=== PATIENT | female | born 1960 | race Caucasian/White ===

== ENCOUNTER 2016-09-03 16:35 | Emergency (ER) | payer BC ==
[2016-09-03 16:49] VITALS: BP 123/81
--- NOTE | 2016-09-03 17:30 | UC ---
Throat Pain/Nasal Kenneth HPI - HPI Summary HPI Summary: Pt presents with 2 week c/o nasal congestion, cough and sinus pressure. Pt has been taking OTC "cold medicine" with no improvement. - History of Current Complaint Chief Complaint: UCRespiratory Stated Complaint: SINUS,COUGH,SORE THROAT Time Seen by Provider: 09/03/16 17:20 Hx Obtained From: Patient Hx Last Menstrual Period: n/a ?: No Onset/Duration: Gradual Onset, Lasting Weeks - 2 Severity: Mild Cough: Nonproductive Associated Signs & Symptoms: Positive: Sinus Discomfort, Other - nasal congestion, non prodictive cough Related History: Seasonal Allergies - unsure - Epiglottits Risk Factors Epiglottis Risk Factors: Negative - Allergies/Home Medications Allergies/Adverse Reactions: Allergies Allergy/AdvReac Type Severity Reaction Status Date / Time Thimerosal Allergy Eyes Verified 09/03/16 16:54 Itchy/Swollen/Red/Watery Home Medications: Home Medications amLODIPine TAB* [Norvasc 5 mg TAB*] 5 mg PO DAILY 09/03/16 [History Confirmed ] PMH/Surg Hx/FS Hx/Imm Hx Previously Healthy: Yes Cardiovascular History: Hypertension - well managed - Surgical History Surgical History: Yes Surgery Procedure, Year, and Place: hysterectomy 2009, bladder repair 2010, d and c plus ablation 2007, tonsils 1967 - Family History Known Family History: Positive: Cardiac Disease, Hypertension - Social History Lives: With Family Alcohol Use: Occasionally Substance Use Type: None Smoking Status (MU): Never Smoked Tobacco Have You Smoked in the Last Year: No Review of Systems Constitutional: Fatigue - geenralized malaise Skin: Negative Eyes: Negative ENT: Sinus Congestion, Sinus Pain/Tenderness, Other - nasal congestion Respiratory: Cough Cardiovascular: Negative Gastrointestinal: Negative Genitourinary: Negative Motor: Negative Neurovascular: Negative Musculoskeletal: Myalgia Neurological: Negative Psychological: Negative All Other Systems Reviewed And Are Negative: Yes Physical Exam Triage Information Reviewed: Yes Appearance: Ill-Appearing Vital Signs: Initial Vital Signs Temp 98.6 F 09/03/16 16:44 Pulse 79 09/03/16 16:44 Resp 18 09/03/16 16:44 BP 123/81 09/03/16 16:44 Pulse Ox 98 09/03/16 16:44 Vital Signs Reviewed: Yes Eye Exam: Normal ENT Exam: Other ENT: Positive: Nasal congestion, TM bulging - bilateral Dental Exam: Normal Neck exam: Normal Neck: Positive: Supple Respiratory Exam: Normal Cardiovascular Exam: Normal Abdominal Exam: Normal Musculoskeletal Exam: Normal Neurological Exam: Normal Psychological Exam: Normal Skin Exam: Normal Throat Pain/Nasal Course/Dx - Differential Dx/Diagnosis Differential Diagnosis/HQI/PQRI: Sinusitis, URI Provider Diagnoses: bronchitis Discharge - Discharge Plan Condition: Stable Disposition: HOME Prescriptions: Azithromycin TAB* [Zithromax TAB (Z-BIRD) 250 mg #6 tabs] 2 tab PO .TODAY, THEN 1 DAILY #1 bird Benzonatate CAP* [Tessalon 100 MG CAP*] 100 mg PO Q8H PRN #30 cap PRN Reason: Cough Cetirizine-Pseudoephedrine [Zyrtec-D Allergy/Congesti] 1 tab PO DAILY #7 tab Patient Education Materials: Acute Bronchitis (ED), Allergic Rhinitis (ED) Referrals: Ingrid Espinoza MD [Primary Care Provider] - If Needed Additional Instructions: Please follow up with your PCP or return to clinic as needed.
== END 2016-09-03 17:46 | disposition home or self-care (01) ==
LOC: UCCORT 16:35
DX: J40 Bronchitis, not specified as acute or chronic (principal); I10 Essential (primary) hypertension
CPT/HCPCS: 99212; G0463

== ENCOUNTER 2018-05-03 18:03 | Emergency (ER) | payer BC ==
[2018-05-03 18:18] VITALS: BP 133/86
--- NOTE | 2018-05-03 18:38 | UC ---
Throat Pain/Nasal Kenneth HPI - HPI Summary HPI Summary: 57 yo female with 3 day hx of cough, nasal congestion, sore throat and left otalgia no f.c no n.v.d. no cp or sob sore throat and cough the worse symptoms - History of Current Complaint Chief Complaint: UCGeneralIllness Stated Complaint: ST,EARACHE Time Seen by Provider: 05/03/18 18:17 Hx Obtained From: Patient Hx Last Menstrual Period: n/a ?: Yes Onset/Duration: Gradual Onset, Lasting Days Severity: Moderate Pain Intensity: 7 Pain Scale Used: 0-10 Numeric Cough: Nonproductive Associated Signs & Symptoms: Positive: Sinus Discomfort, Nasal Discharge - Epiglottits Risk Factors Epiglottis Risk Factors: Negative - Allergies/Home Medications Allergies/Adverse Reactions: Allergies Allergy/AdvReac Type Severity Reaction Status Date / Time thimerosal Allergy Eyes Verified 05/03/18 18:14 Itchy/Swollen/Red/Watery Home Medications: Home Medications Fexofenadine/Pseudoephedrine [Tierney-D 24 Hour Tablet] 1 each PO DAILY [History Confirmed 05/03/18] Ibuprofen [Advil] 400 mg PO DAILY 05/03/18 [History Confirmed 05/03/18] Sertraline HCl [Zoloft] 50 mg PO DAILY 05/03/18 [History Confirmed 05/03/18] guaiFENesin [Mucinex] 1 each PO DAILY 05/03/18 [History Confirmed 05/03/18] PMH/Surg Hx/FS Hx/Imm Hx Previously Healthy: Yes - Surgical History Surgical History: Yes Surgery Procedure, Year, and Place: hysterectomy 2009, bladder repair 2010, d and c plus ablation 2007, tonsils 1967. EYES - LENS IMPLANT - - Family History Known Family History: Positive: Cardiac Disease, Hypertension - Social History Alcohol Use: Occasionally Substance Use Type: None Smoking Status (MU): Never Smoked Tobacco Have You Smoked in the Last Year: No Review of Systems All Other Systems Reviewed And Are Negative: Yes Constitutional: Positive: Negative Skin: Positive: Negative Eyes: Positive: Negative ENT: Positive: Sore Throat, Ear Ache Respiratory: Positive: Cough Cardiovascular: Positive: Negative Gastrointestinal: Positive: Negative Genitourinary: Positive: Negative Motor: Positive: Negative Neurovascular: Positive: Negative Musculoskeletal: Positive: Negative Neurological: Positive: Negative Psychological: Positive: Negative Physical Exam Triage Information Reviewed: Yes Appearance: Well-Appearing, No Pain Distress, Well-Nourished Vital Signs: Initial Vital Signs Temp 98.6 F 05/03/18 18:13 Pulse 78 05/03/18 18:13 Resp 16 05/03/18 18:13 BP 133/86 05/03/18 18:13 Pulse Ox 98 05/03/18 18:13 Vital Signs Reviewed: Yes Eyes: Positive: Conjunctiva Clear ENT: Positive: Hearing grossly normal, Nasal congestion, TM bulging - L, Hoarse voice, Uvula midline. Negative: Nasal drainage, Tonsillar swelling, Tonsillar exudate, Trismus, Muffled voice, Dental tenderness, Sinus tenderness Dental Exam: Normal Neck: Positive: Supple, Nontender, No Lymphadenopathy Respiratory: Positive: Lungs clear, Normal breath sounds, No respiratory distress, No accessory muscle use Cardiovascular: Positive: RRR, No Murmur. Negative: Tachycardia, Bradycardia Musculoskeletal: Positive: ROM Intact, No Edema Neurological Exam: Normal Neurological: Positive: Alert Psychological Exam: Normal Skin Exam: Normal Throat Pain/Nasal Course/Dx - Differential Dx/Diagnosis Provider Diagnosis: Viral URI with cough, Left serous otitis media, Laryngitis Discharge - Sign-Out/Discharge Documenting (check all that apply): Patient Departure All imaging exams completed and their final reports reviewed: No Studies - Discharge Plan Condition: Stable Disposition: HOME Prescriptions: Benzonatate CAP* [Tessalon CAP*] 100 - 200 mg PO TID PRN #28 cap PRN Reason: Cough predniSONE [Deltasone 20 MG TAB] 40 mg PO DAILY #10 tab Patient Education Materials: Upper Respiratory Infection (ED), Serous Otitis Media (ED) Referrals: Ingrid Espinoza MD [Primary Care Provider] - 7 Days (if not better....sooner for worsening symtpoms ) Additional Instructions: I suggest you start the prednisone in AM - Billing Disposition and Condition Condition: STABLE Disposition: Home
== END 2018-05-03 18:48 | disposition home or self-care (01) ==
LOC: UCCORT 18:03
DX: J06.9 Acute upper respiratory infection, unspecified (principal); R05 Cough; J04.0 Acute laryngitis; H65.92 Unspecified nonsuppurative otitis media, left ear; Z88.8 Allergy status to other drugs, medicaments and biological substances
CPT/HCPCS: 87651; 99212; G0463

== ENCOUNTER 2018-08-27 18:28 | Emergency (ER) | payer BC ==
--- OUTSIDE RECORDS SUMMARY | 2018-08-27 19:19 | XMS REPORT | Continuity of Care Document ---
:1960 External Reference #:[id number] Author Name Ingrid Espinoza MD Address [address] [place] [address] Care Team Providers Name Role Phone Ingrid Espinoza MD Care Team Information Tso Unavailable Ingrid Espinoza MD Primary Care Physician Unavailable Payers Date Identification Numbers Payment Provider Subscriber Policy Number: [id number] Timothy Navas PayID: [id number] [address] [address] [place] [address] Problems Active Problems Provider Date Benign essential hypertension Ingrid Espinoza MD Onset: 10/29/2015 Arthralgia of the pelvic region and thigh Ingrid Espinoza MD Onset: 01/28/2016 Feeling irritable Ingrid Espinoza MD Onset: 04/28/2016 Insomnia Ingrid Espinoza MD Onset: 04/28/2016 Moderate recurrent major depression Ingrid Espinoza MD Onset: 02/23/2017 Anxiety state Ingrid Espinoza MD Onset: 02/23/2017 Family History Date Family Member(s) Observation Comments Father Chronic Obstructive Pulmonary Disease (COPD) Father Glaucoma Mother Cancer Mother Heart Disease Mother Thyroid Disease Social History Type Date Description Comments Sex Unknown Lives With Occupation [employer] Work Status Currently Working ADL's/IADL's Independent with all ADL's ETOH Use Rarely consumes alcohol Recreational Drug Use Former Drug User [facility] Tobacco Use Start: Unknown Patient denies history of smoking Smoking Status Reviewed: 08/03/18 Patient denies history of smoking Allergies, Adverse Reactions, Alerts Active Allergies Reaction Severity Comments Date Thimerosal 10/29/2015 Medications Active Medications SIG Qnty Indications Ordering Date Provider Wrist Brace Ultra-Lite wear on right 1Pair G56.03 Olga, Ingrid, 2018 Carpal Tunnel/One Size wrist and left MD wrist Misc Ergocalciferol 1 cap by mouth 4caps Olga, Ingrid, 05/24/2018 [id number] every week for MD Capsules 12 weeks Sertraline HCL 1 by mouth 30tabs Olga, Ingrid, 01/13/2018 100mg everyday MD Tablets Hydroxyzine HCL take one tablet 30tabs Gagen, 02/23/2017 10mg by mouth at [place], [place], Tablets night as 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[employer], CNM for itching and insomnia Allergy Injections Olga, Ingrid, 04/28/2016 MD History Medications Sertraline HCL 1 tab by mouth 60tabs Olga, Ingrid, 11/24/2017 - 25mg Tablets every night x 2 MD 01/13/2018 weeks then take 2 tabs at night Zolpidem Tartrate take one every 30tabs F51.01 Gagen, 10/21/2017 - 5mg night for [place], 03/25/2018 Tablets insomnia MS, [employer], CNM Reference #: [id number] Benzonatate take one capsule 30caps R05 Gagen, 10/21/2017 - 200mg Capsules every 8 hours as [place], 03/25/2018 needed MS, [employer], CNM Duloxetine HCL 1 tabs by mouth 60caps Olga, Ingrid, 02/23/2017 - 30mg Caps DR every evening MD 01/13/2018 Part Ciprofloxacin HCL 1 tab by mouth 10tabs Olga, Ingrid, 07/09/2016 - 500mg twice daily for 5 MD Unknown Tablets days Ambien take one tab by 30tabs Gagen, 04/28/2016 - 5mg Tablets mouth at night as [place], 11/02/2017 needed as needed [place], [employer], CNM insomnia Ref # [id number] Diclofenac Sodium 2 g topical on 100gm Olga Ingrid, 04/28/2016 - 1% Gel back of neck Unknown twice a day as needed Tizanidine HCL 1 tab by mouth 60tabs Olga, Ingrid, 04/28/2016 - 4mg Tablets two times a day Unknown as needed for muscle spasm/pain Paroxetine HCL 1 by mouth every 30tabs Olga, Ingrid, 02/20/2016 - 20mg Tablets day 02/23/2017 Xanax 1 tab by mouth 30tabs Ingrid Espinoza, 02/20/2016 - 0.25mg Tablets twice daily as Unknown needed for severe anxiety Cyclobenzaprine HCL 1 by mouth once a 30tabs Ingrid Espinoza, 02/20/2016 - 10mg day as needed MD Unknown Tablets muscle spasms of back No Active Medications Unknown 01/28/2016 - 01/28/2016 Nasadrops Saline On The airrigate nose Ingrid Espinoza, 01/28/2016 - Go every 6 hours as 01/28/2016 0.9% Solution needed Amlodipine Besylate 1 by mouth every 90tabs I10 Ingrid Espinoza, 01/28/2016 - 5mg day 10/21/2017 Tablets Ambien take one tab by 30tabs Ingrid Espinoza, 01/28/2016 - 5mg Tablets mouth at night as Unknown needed as needed insomnia No Active Medications Ingrid Espinoza, 10/29/2015 - 10/29/2015 Amlodipine Besylate 1 by mouth every 30tabs I10 Ingrid Espinoza, 10/29/2015 - 5mg day 01/28/2016 Tablets Levocetirizine 1 by mouth every Unknown - Dihydrochloride day 10/21/2017 5mg Tablets Nasonex 2 sprays each Unknown - 50mcg/Act nostril every day Unknown Suspension Vital Signs Date Vital Result Comment 08/03/2018 4:02pm BP Systolic Sitting Left Arm 116 mmHg BP Diastolic Sitting Left Arm 76 mmHg Body Temperature 99.1 F Heart Rate 88 /min Respiratory Rate 20 /min Height 65.5 inches 5'5.50" Weight 194.00 lb BMI (Body Mass Index) 31.8 kg/m2 BSA (Body Surface Area) 1.96 m2 [place] body weight in kilograms 58 kg O2 % BldC Oximetry 97 % Ra 03/25/2018 3:57pm BP Systolic Sitting Right Arm 135 mmHg BP Diastolic Sitting Right Arm 87 mmHg Body Temperature 99.2 F Heart Rate 78 /min Height 65.5 inches 5'5.50" Weight 195.00 lb BMI (Body Mass Index) 32.0 kg/m2 BSA (Body Surface Area) 1.97 m2 [place] body weight in kilograms 58 kg O2 % BldC Oximetry 96 % 01/13/2018 4:05pm BP Systolic Sitting Left Arm 124 mmHg BP Diastolic Sitting Left Arm 80 mmHg Body Temperature 98.7 F Heart Rate 78 /min Respiratory Rate 16 /min Height 65.5 inches 5'5.50" Weight 188.00 lb BMI (Body Mass Index) 30.8 kg/m2 BSA (Body Surface Area) 1.94 m2 [place] body weight in kilograms 58 kg O2 % BldC Oximetry 97 % Ra 11/24/2017 2:59pm BP Systolic Sitting Right Arm 135 mmHg BP Diastolic Sitting Right Arm 92 mmHg Body Temperature 98.2 F Heart Rate 90 /min Respiratory Rate 16 /min Height 65.5 inches 5'5.50" Weight 187.00 lb BMI (Body Mass Index) 30.6 kg/m2 BSA (Body Surface Area) 1.93 m2 [place] body weight in kilograms 58 kg O2 % BldC Oximetry 97 % 11/02/2017 3:31pm BP Systolic 133 mmHg BP Diastolic 92 mmHg Body Temperature 97.7 F Heart Rate 76 /min Respiratory Rate 18 /min Height 65.5 inches 5'5.50" Weight 185.12 lb BMI (Body Mass Index) 30.3 kg/m2 BSA (Body Surface Area) 1.93 m2 [place] body weight in kilograms 58 kg O2 % BldC Oximetry 97 % 10/21/2017 11:05am BP Systolic Sitting Right Arm 120 mmHg BP Diastolic Sitting Right Arm 72 mmHg Body Temperature 98.9 F Heart Rate 74 /min Respiratory Rate 18 /min Height 65.5 inches 5'5.50" Weight 185.00 lb BMI (Body Mass Index) 30.3 kg/m2 BSA (Body Surface Area) 1.92 m2 [place] body weight in kilograms 58 kg O2 % BldC Oximetry 97 % ra 02/23/2017 1:39pm BP Systolic 139 mmHg BP Diastolic 95 mmHg Heart Rate 82 /min Respiratory Rate 14 /min Height 65.5 inches 5'5.50" Weight 195.50 lb BMI (Body Mass Index) 32.0 kg/m2 BSA (Body Surface Area) 1.97 m2 [place] body weight in kilograms 58 kg O2 % BldC Oximetry 97 % 09/29/2016 3:44pm BP Systolic Sitting Right Arm 117 mmHg BP Diastolic Sitting Right Arm 79 mmHg Body Temperature 99.1 F Heart Rate 70 /min Height 65.5 inches 5'5.50" Weight 185.00 lb BMI (Body Mass Index) 30.3 kg/m2 BSA (Body Surface Area) 1.92 m2 [place] body weight in kilograms 58 kg O2 % BldC Oximetry 95 % ra 07/09/2016 2:00pm BP Systolic Sitting Right Arm 120 mmHg BP Diastolic Sitting Right Arm 80 mmHg Body Temperature 98.1 F Height 65.5 inches 5'5.50" Weight 180.00 lb BMI (Body Mass Index) 29.5 kg/m2 BSA (Body Surface Area) 1.90 m2 [place] body weight in kilograms 58 kg 07/01/2016 11:42am BP Systolic 116 mmHg BP Diastolic 78 mmHg Heart Rate 65 /min Height 65.5 inches 5'5.50" Weight 181.00 lb BMI (Body Mass Index) 29.7 kg/m2 BSA (Body Surface Area) 1.91 m2 [place] body weight in kilograms 58 kg 05/21/2016 10:43am BP Systolic 138 mmHg BP Diastolic 94 mmHg Heart Rate 74 /min Height 65.5 inches 5'5.50" Weight 180.00 lb BMI (Body Mass Index) 29.5 kg/m2 BSA (Body Surface Area) 1.90 m2 04/28/2016 3:40pm BP Systolic 120 mmHg BP Diastolic 86 mmHg Heart Rate 82 /min Height 65.5 inches 5'5.50" Weight 182.00 lb BMI (Body Mass Index) 29.8 kg/m2 BSA (Body Surface Area) 1.91 m2 02/20/2016 11:10am BP Systolic Sitting Right Arm 140 mmHg BP Diastolic Sitting Right Arm 86 mmHg Height 65.5 inches 5'5.50" Weight 196.00 lb BMI (Body Mass Index) 32.1 kg/m2 BSA (Body Surface Area) 1.97 m2 01/28/2016 3:36pm BP Systolic Sitting Right Arm 132 mmHg BP Diastolic Sitting Right Arm 88 mmHg Height 65.5 inches 5'5.50" Weight 197.31 lb BMI (Body Mass Index) 32.3 kg/m2 BSA (Body Surface Area) 1.98 m2 10/29/2015 10:58am BP Systolic 150 mmHg BP Diastolic 106 mmHg Heart Rate 72 /min Height 65.5 inches 5'5.50" Weight 194.00 lb BMI (Body Mass Index) 31.8 kg/m2 BSA (Body Surface Area) 1.96 m2 [place] body weight in kilograms 58 kg Results Test Date Facility Test Result H/L Range Note Laboratory test [facility] Laboratory Rapid Strep Negative Negative 1 finding 9 [phone] Molecular Comprehensive [facility] Glucose 108 mg/dL High 74-106 2 Metabolic Panel [address] [place], [place] [id number] [phone] BUN 12 mg/dL N 7-18 Creatinine 0.6 mg/dL N 0.6-1.3 Glom Filtration Rate, Estimate >60 mL/min >60 If >60 mL/min >60 3 BUN/Creat 20.0 ratio Sodium 139 mmol/L N 136-145 Potassium 4.5 mmol/L N 3.5-5.1 Chloride 106 mmol/L N 98-107 Carbon Dioxide 28 mmol/L N 21-32 Anion Gap 5 mEq/L Low 8-16 Calcium 8.7 mg/dL N 8.5-10.1 Total Protein 7.5 g/dL N 6.4-8.2 Albumin 4.1 g/dL N 3.4-5.0 Globulin 3.4 g/dL N 1.9-4.3 Alb/Glob 1.2 ratio Bilirubin,Total 0.4 mg/dL N 0.2-1.0 Sgot/Ast 17 U/L N 15-37 SGPT/Alt 23 U/L N 12-78 Alkaline Phosphatase 65 U/L N 45-117 Reflex add FT3? Y Reflex add FT4? Y CBC W/Automated Diff 04/26/2018 [facility] White Blood 4.5 K/uL N 3.1-10.[address] Count [place], [place] [id number] [phone] Red Blood Count 4.65 M/uL N 3.90-5.40 Hemoglobin 14.2 gm/dL N 11.6-15.8 Hematocrit 42.9 % N 36.0-46.1 Mean Cell Volume 92.3 fl N 80.9-99.0 Mean Corpuscular HGB 30.5 pg N 25.9-32.7 Mean Corpuscular HGB Conc 33.1 g/dL N 30.8-34.3 Platelet Count 241 K/uL N 155-360 Red Cell Distri Width SD 45.5 fl N 36-47 Red Cell Distri Width %CV 13.7 % N 11.7-14.4 Mean Platelet Volume 11.0 fL N 8.9-12.4 Neut% 53.1 % N 40.4-72.8 Lymph % 34.9 % N 20.0-42.0 [place] % 8.2 % N 4.3-13.2 Eo% 2.9 % N 0.0-6.6 Bas% 0.9 % N 0.0-1.1 Neut# 2.41 K/uL N 1.8-7.0 Lymph # 1.58 K/uL N 1.0-4.0 [place] # 0.37 K/uL N 0.3-0.9 Eos # 0.13 K/uL N 0.0-0.5 Baso # 0.04 K/uL N 0.0-0.1 TSH Reflex FT4 04/26/2018 [facility] Thyroid Stim 1.50 uIU/mL N 0.30-4.20 And/Or FT3 [address] [place] [address] [phone] Reflex add FT3? Y Reflex add FT4? Y LDL Cholesterol 04/26/2018 [facility] Cholesterol 242 mg/dL High <200 4 [address] [place] [address] [phone] Triglycerides 218 mg/dL High <150 5 HDL Cholesterol 50 mg/dL >40 6 LDL-Cholesterol 148 mg/dL < 100 7 Reflex add FT3? Y Reflex add FT4? Y Laboratory 04/26/2018 [facility] Vitamin 16.2 ng/mL Low 30.0-100.0 8 test finding [address] D,25-[place] [address] [phone] Urine Culture 10/21/2017 [facility] Urine Culture URETHRAL [address] [place] [address] [phone] Quantity 10,000 - 50,000 <SEE NOTE> 10 Laboratory test finding 02/23/2017 [facility] Ferritin 55 ng/mL N 8-[address] [place] [address] [phone] Free T4 0.87 ng/dL N 0.76-1.46 Iron-Tibc-%Sat 02/23/2017 [facility] Serum Iron 136 g/dL N 50-[address] [place] [address] [phone] Total Iron Binding Capacity 358 g/dL N 250-450 Transferrin %Saturation 38 % N 12-57 Laboratory test 02/23/2017 [facility] Thyroid Stim 1.84 uIU/mL N 0.30-4.[address] [place] [address] [phone] Magnesium 2.4 mg/dL N 1.8-2.4 Vitamin B12 504 pg/mL N 193-986 CBS W/Automated Diff 02/23/2017 [facility] White Blood 7.9 K/uL N 3.1-10.[address] [place] [address] [phone] Red Blood Count 4.89 M/uL N 3.90-5.40 Hemoglobin 14.9 gm/dL N 11.6-15.8 Hematocrit 44.0 % N 36.0-46.1 Mean Cell Volume 90.0 fl N 80.9-99.0 Mean Corpuscular HGB 30.5 pg N 25.9-32.7 Mean Corpuscular HGB Conc 33.9 g/dL N 30.8-34.3 Platelet Count 296 K/uL N 155-360 Red Cell Distri Width SD 43.5 fl N 3-47 Red Cell Distri Width %CV 13.5 % N 11.7-14.4 Mean Platelet Volume 11.5 fL N 8.9-12.4 Neut% 54.5 % N 40.4-72.8 Lymph % 34.7 % N 20.0-42.0 [place] % 8.3 % N 4.3-13.2 Eo% 1.9 % N 0.0-6.6 Bas% 0.6 % N 0.0-1.1 Neut# 4.32 K/uL N 1.8-7.0 Lymph # 2.75 K/uL N 1.0-4.0 [place] # 0.66 K/uL N 0.3-0.9 Eos # 0.15 K/uL N 0.0-0.5 Baso # 0.05 K/uL N 0.0-0.1 Comprehensive Metabolic 02/23/2017 [facility] Glucose 87 mg/dL N 74-[address] [place] [address] [phone] BUN 14 mg/dL N 7-18 Creatinine 0.5 mg/dL Low 0.6-1.3 Glom Filtration Rate, Estimate >60 mL/min >60 If >60 mL/min >60 12 BUN/Creat 28.0 ratio Sodium 140 mmol/L N 136-145 Potassium 4.2 mmol/L N 3.5-5.1 Chloride 106 mmol/L N 98-107 Carbon Dioxide 27 mmol/L N 21-32 Anion Gap 7 mEq/L Low 8-16 Calcium 9.5 mg/dL N 8.5-10.1 Total Protein 7.9 g/dL N 6.4-8.2 Albumin 4.2 g/dL N 3.4-5.0 Globulin 3.7 g/dL N 1.9-4.3 Alb/Glob 1.1 ratio Bilirubin,Total 0.4 mg/dL N 0.2-1.0 Sgot/Ast 21 U/L N 15-37 SGPT/Alt 34 U/L N 12-78 Alkaline Phosphatase 84 U/L N 45-117 Laboratory test 10/02/2016 [facility] Rheumatoid < 10.0 IU/mL N 0.0-15.0 [address] [place] [address] [phone] CCP Igg/Iga 10/02/2016 [facility] CCP Igg/Iga 4 units 0-19 [address] [place] [address] [phone] Laboratory test 10/02/2016 [facility] Anti-Nuclear Negative Negative [address] Antibodies AU/[place] [address] Direct [phone] Sedimentation Rate 13 mm/hr N 0-30 16 Culture If 07/09/2016 [facility] Culture If CULTURE TO 17, [address] Indicated [place]LL[place] <[place] [address] Comment NOTE> [phone] Source: URINE, CLEAN CAT <SEE NOTE> 19 Ua Routine 07/09/2016 [facility] Urine Color DK YELLOW Yellow [address] [place] [address] [phone] Urine Clarity CLEAR Clear Urine Glucose - Dipstick NEGATIVE mg/dL Negative Urine Bilirubin - Dipstick NEGATIVE Negative Urine Ketone NEGATIVE mg/dL Negative Urine Specific [place] <=1.005 Low 1.010-1.030 Urine Blood LARGE Abnormal Negative Urine PH 5.0 Low 6.5-7.5 Urine Protein - Dipstick NEGATIVE mg/dL Negative Urine Urobilinogen - Dipstick 1.0 E.U./dL N 0.2-1.0 Urine Nitrite - Dipstick POSITIVE Abnormal Negative Urine Leuk Esterase NEGATIVE Negative Urine RBC NONE SEEN rbc/hpf 0-2 Urine WBC 2-5 wbc/hpf 0-7 Urine Epithelial Cells VERY FEW /lpf None Seen Urine Bacteria MODERATE Abnormal None Seen Source: URINE, CLEAN CAT <SEE NOTE> 20 Urine Culture 07/09/2016 [facility] Urine Culture [address]RETHRAL [address] [place] [address] [phone] Quantity 10,000 - 50,000 <SEE NOTE> N 21 Calculi,Urinary,With Photo 07/01/2016 [facility] Color Brown . 22 [address] [place] [address] [phone] Size 1x1x1 mm . Weight 1.9 mg . Composition (SEE NOTE) 23 Ca Oxalate,Monohydrate 95 % . Calcium Phosphate 05 % . Nidus No Nidus visuali <SEE NOTE> . 24 Comment Note: . 25 . (SEE NOTE) 26 . (SEE NOTE) 27 . (SEE NOTE) 28 Disclaimer (SEE NOTE) 29 pH Ur Strip.auto 06/03/2016 N2N/CCD Import pH Ur Strip.auto 8.5 High 6.5- 7.5 Urobilinogen Ur 06/03/2016 N2N/CCD Import Urobilinogen Ur 0.2 0.2-1.0 Strip-aCnc Strip-aCn Urine hemoglobin 06/03/2016 N2N/CCD Import Urine hemoglobin Large High Negative detection by detection by automated test automated test strip strip Ua Routine 06/03/2016 [facility] Urine Color YELLOW Yellow [address] [place] [address] [phone] Urine Clarity SL CLOUDY Clear Urine Glucose - Dipstick NEGATIVE mg/dL Negative Urine Bilirubin - Dipstick NEGATIVE Negative Urine Ketone 15 mg/dL High Negative Urine Specific [place] 1.015 N 1.010-1.030 Urine Blood LARGE Abnormal Negative Urine PH 8.5 High 6.5-7.5 Urine Protein - Dipstick NEGATIVE mg/dL Negative Urine Urobilinogen - Dipstick 0.2 E.U./dL N 0.2-1.0 Urine Nitrite - Dipstick NEGATIVE Negative Urine Leuk Esterase NEGATIVE Negative Urine RBC 30-50 rbc/hpf High 0-2 Urine WBC 0-2 wbc/hpf 0-7 Urine Epithelial Cells VERY FEW /lpf None Seen Urine Bacteria VERY FEW None Seen Source: URINE, CLEAN CAT <SEE NOTE> 31 Bacteria 06/03/2016 N2N/CCD Import Bacteria Very Few None Seen [presence] in [presence] in urine sediment by urine sediment light micky by light microscopy Bilirub Ur Ql 06/03/2016 N2N/CCD Import Bilirub Ur Ql Negative Negative Strip.auto Strip.auto Color Ur 06/03/2016 N2N/CCD Import Color Ur Yellow Yellow Epithelial cells 06/03/2016 N2N/CCD Import Epithelial cells Very Few None Seen [presence] in [presence] in urine sediment by urine sediment l by light microscopy Ketones Ur 06/03/2016 N2N/CCD Import Ketones Ur 15 High Negative Strip.auto-mCnc Strip.auto-mCnc Leukocyte 06/03/2016 N2N/CCD Import Leukocyte Negative Negative esterase Ur Ql esterase Ur Ql Strip.auto Strip.auto Nitrite Ur Ql 06/03/2016 N2N/CCD Import Nitrite Ur Ql Negative Negative Strip.auto Strip.auto Prot Ur 06/03/2016 N2N/CCD Import Prot Ur Negative Negative Strip.auto-mCnc Strip.auto-mCnc Specific gravity 06/03/2016 N2N/CCD Import Specific gravity 1.015 1.010- 1.030 of urine by of urine by automated test automated test strip strip Urine appearance 06/03/2016 N2N/CCD Import Urine appearance SL Cloudy Clear determination determination Urine glucose 06/03/2016 N2N/CCD Import Urine glucose Negative Negative measurement by measurement by automated test automated test strip strip (mass/volume) Monocytes # Bld 05/14/2016 N2N/CCD Import Monocytes # Bld 0.36 0.3-0.9 Auto Auto MCV RBC Auto 05/14/2016 N2N/CCD Import MCV RBC Auto 92.4 80.9-99.0 MCHC RBC 05/14/2016 N2N/CCD Import MCHC RBC 33.7 30.8-34.3 Auto-mCnc Auto-mCnc MCH RBC Qn Auto 05/14/2016 N2N/CCD Import MCH RBC Qn Auto 31.2 25.9- 32.7 Lymphocytes/leuk 05/14/2016 N2N/CCD Import Lymphocytes/leuk 25.9 20.0- 42.0 NFr Bld Auto NFr Bld Auto Lymphocytes # Bld 05/14/2016 N2N/CCD Import Lymphocytes # 1.28 1.0-4.0 Auto Bld Auto Lipase SerPl-cCnc 05/14/2016 N2N/CCD Import Lipase 96 73-393 SerPl-cCnc Hgb Bld-mCnc 05/14/2016 N2N/CCD Import Hgb Bld-mCnc 14.0 11.6-15.8 Hct VFr Bld Auto 05/14/2016 N2N/CCD Import Hct VFr Bld Auto 41.5 36.0- 46.1 Glucose 05/14/2016 N2N/CCD Import Glucose 137 High 74-106 [mass/volume] in [mass/volume] in serum or plasma serum or plasma Globulin Ser 05/14/2016 N2N/CCD Import Globulin Ser 3.5 1.9-4.3 Calc-mCnc Calc-mCnc Monocytes/leuk 05/14/2016 N2N/CCD Import Monocytes/leuk 7.3 4.3-13.2 NFr Bld Auto NFr Bld Auto Neutrophils # Bld 05/14/2016 N2N/CCD Import Neutrophils # 3.13 1.8-7.0 Auto Bld Auto Neutrophils/leuk 05/14/2016 N2N/CCD Import Neutrophils/leuk 63.4 40.4- 72.8 NFr Bld Auto NFr Bld Auto PMV Bld Auto 05/14/2016 N2N/CCD Import PMV Bld Auto 11.6 8.9-12.4 Platelet # Bld 05/14/2016 N2N/CCD Import Platelet # Bld 183 150-400 Auto Auto Potassium 05/14/2016 N2N/CCD Import Potassium 3.9 3.5-5.1 SerPl-sCnc SerPl-sCnc Prot SerPl-mCnc 05/14/2016 N2N/CCD Import Prot SerPl-mCnc 7.4 6.4-8.2 RBC # Bld Auto 05/14/2016 N2N/CCD Import RBC # Bld Auto 4.49 3.90-5.40 RDW RBC Auto 05/14/2016 N2N/CCD Import RDW RBC Auto 46.4 3-47 RDW RBC Auto-Rto 05/14/2016 N2N/CCD Import RDW RBC Auto-Rto 14.1 11.7- 14.4 Sodium SerPl-sCnc 05/14/2016 N2N/CCD Import Sodium 143 136-145 SerPl-sCnc WBC # Bld Auto 05/14/2016 N2N/CCD Import WBC # Bld Auto 4.9 3.1-10.7 Comprehensive 05/14/2016 [facility] Glucose 137 mg/dL High 74-106 32 Metabolic Panel [address] [place], [place] [id number] [phone] BUN 15 mg/dL N 7-18 Creatinine 0.6 mg/dL N 0.6-1.3 Glom Filtration Rate, Estimate >60 mL/min >60 If >60 mL/min >60 33 BUN/Creat 25.0 ratio Sodium 143 mmol/L N 136-145 Potassium 3.9 mmol/L N 3.5-5.1 Chloride 109 mmol/L High 98-107 Carbon Dioxide 24 mmol/L N 21-32 Anion Gap 10 mEq/L N 8-16 Calcium 8.3 mg/dL Low 8.5-10.1 Total Protein 7.4 g/dL N 6.4-8.2 Albumin 3.9 g/dL N 3.4-5.0 Globulin 3.5 g/dL N 1.9-4.3 Alb/Glob 1.1 ratio Bilirubin,Total 0.3 mg/dL N 0.2-1.0 Sgot/Ast 39 U/L High 15-37 SGPT/Alt 51 U/L N 12-78 Alkaline Phosphatase 74 U/L N 45-117 CBS W/Automated Diff 05/14/2016 [facility] White Blood 4.9 K/uL N 3.1-10.[address] Count [place], [place] [address] [phone] Red Blood Count 4.49 M/uL N 3.90-5.40 Hemoglobin 14.0 gm/dL N 11.6-15.8 Hematocrit 41.5 % N 36.0-46.1 Mean Cell Volume 92.4 fl N 80.9-99.0 Mean Corpuscular HGB 31.2 pg N 25.9-32.7 Mean Corpuscular HGB Conc 33.7 g/dL N 30.8-34.3 Platelet Count 183 K/uL N 150-400 Red Cell Distri Width SD 46.4 fl N 3-47 Red Cell Distri Width %CV 14.1 % N 11.7-14.4 Mean Platelet Volume 11.6 fL N 8.9-12.4 Neut% 63.4 % N 40.4-72.8 Lymph % 25.9 % N 20.0-42.0 [place] % 7.3 % N 4.3-13.2 Eo% 2.6 % N 0.0-6.6 Bas% 0.8 % N 0.0-1.1 Neut# 3.13 K/uL N 1.8-7.0 Lymph # 1.28 K/uL N 1.0-4.0 [place] # 0.36 K/uL N 0.3-0.9 Eos # 0.13 K/uL N 0.0-0.5 Baso # 0.04 K/uL N 0.0-0.1 pH Ur Strip.auto 05/14/2016 N2N/CCD Import pH Ur Strip.auto 7.0 6.5-7.5 Urobilinogen Ur 05/14/2016 N2N/CCD Import Urobilinogen Ur 0.2 0.2-1.0 Strip-aCnc Strip-aCnc Urine hemoglobin 05/14/2016 N2N/CCD Import Urine hemoglobin Moderate High Negative detection by detection by automated test automated test strip strip Urine glucose 05/14/2016 N2N/CCD Import Urine glucose Negative Negative measurement by measurement by automated test automated test strip strip (mass/volume) Urine appearance 05/14/2016 N2N/CCD Import Urine appearance Clear Clear determination determination Specific gravity 05/14/2016 N2N/CCD Import Specific gravity 1.010 1.010- 1.030 of urine by of urine by automated test automated test strip strip Prot Ur 05/14/2016 N2N/CCD Import Prot Ur Negative Negative Strip.auto-mCnc Strip.auto-mCnc Nitrite Ur Ql 05/14/2016 N2N/CCD Import Nitrite Ur Ql Negative Negative Strip.auto Strip.auto Leukocyte 05/14/2016 N2N/CCD Import Leukocyte Negative Negative esterase Ur Ql esterase Ur Ql Strip.auto Strip.auto Ketones Ur 05/14/2016 N2N/CCD Import Ketones Ur Negative Negative Strip.auto-mCnc Strip.auto-mCnc Epithelial cells 05/14/2016 N2N/CCD Import Epithelial cells Very Few None Seen [presence] in [presence] in urine sediment by urine sediment by l light microscopy Color Ur 05/14/2016 N2N/CCD Import Color Ur Yellow Yellow Bilirub Ur Ql 05/14/2016 N2N/CCD Import Bilirub Ur Ql Negative Negative Strip.auto Strip.auto Amorph Sed UrnS 05/14/2016 N2N/CCD Import Amorph Sed UrnS Very Few Negative Ql Micro Ql Micro Ua Routine 05/14/2016 [facility] Urine Color YELLOW Yellow [address] [place] [id number] [phone] Urine Clarity CLEAR Clear Urine Glucose - Dipstick NEGATIVE mg/dL Negative Urine Bilirubin - Dipstick NEGATIVE Negative Urine Ketone NEGATIVE mg/dL Negative Urine Specific [place] 1.010 N 1.010-1.030 Urine Blood MODERATE Abnormal Negative Urine PH 7.0 N 6.5-7.5 Urine Protein - Dipstick NEGATIVE mg/dL Negative Urine Urobilinogen - Dipstick 0.2 E.U./dL N 0.2-1.0 Urine Nitrite - Dipstick NEGATIVE Negative Urine Leuk Esterase NEGATIVE Negative Urine RBC 5-10 rbc/hpf High 0-2 Urine WBC 0-2 wbc/hpf 0-7 Urine Epithelial Cells VERY FEW /lpf None Seen Urine Amorph Sediment VERY FEW Negative Source: URINE, CLEAN CAT <SEE NOTE> 34 Eosinophil/leuk NFr 05/14/2016 N2N/CCD Import Eosinophil/leuk NFr 2.6 0.0-6.6 Bld Auto Bld Auto Eosinophil # Bld 05/14/2016 N2N/CCD Import Eosinophil # Bld 0.13 0.0- 0.5 Auto Auto Creat SerPl-mCnc 05/14/2016 N2N/CCD Import Creat SerPl-mCnc 0.6 0.6-1.3 Chloride SerPl-sCnc 05/14/2016 N2N/CCD Import Chloride SerPl-sCnc 109 High 98-107 Calcium SerPl-mCnc 05/14/2016 N2N/CCD Import Calcium SerPl-mCnc 8.3 Low 8.5-10.1 Co2 SerPl-sCnc 05/14/2016 N2N/CCD Import Co2 SerPl-sCnc 24 21-32 Bilirub SerPl-mCnc 05/14/2016 N2N/CCD Import Bilirub SerPl-mCnc 0.3 0.2- 1.0 Basophils/leuk NFr 05/14/2016 N2N/CCD Import Basophils/leuk NFr 0.8 0.0- 1.1 Bld Auto Bld Auto Basophils # Bld Auto 05/14/2016 N2N/CCD Import Basophils # Bld 0.04 0.0- 0.1 Auto BUN/Creat SerPl 05/14/2016 N2N/CCD Import BUN/Creat SerPl 25.0 BUN SerPl-mCnc 05/14/2016 N2N/CCD Import BUN SerPl-mCnc 15 7-18 Anion Gap SerPl-sCnc 05/14/2016 N2N/CCD Import Anion Gap 10 8-16 SerPl-sCnc Albumin/Glob SerPl 05/14/2016 N2N/CCD Import Albumin/Glob SerPl 1.1 Albumin SerPl-mCnc 05/14/2016 N2N/CCD Import Albumin SerPl-mCnc 3.9 3.4- 5.0 Ast SerPl-cCnc 05/14/2016 N2N/CCD Import Ast SerPl-cCnc 39 High 15-37 Alt SerPl-cCnc 05/14/2016 N2N/CCD Import Alt SerPl-cCnc 51 12-78 Alp SerPl-cCnc 05/14/2016 N2N/CCD Import Alp SerPl-cCnc 74 45-117 Laboratory test 05/14/2016 [facility] Lipase 96 U/L N 73-393 finding [address] [place] [address] [phone] HCG,Serum (Qualitative) NEGATIVE (Negative) 35 Ferritin 10/29/2015 [facility] Ferritin 53 ng/mL N 8-252 36 [address] [place] [address] [phone] @[facility] Pat Id: [id number] @[facility] Req #: [id number] Is Patient Fasting? Unknown Iron-Tibc-%Sat 10/29/2015 [facility] Serum Iron 85 g/dL N 50-170 [address] [place] [address] [phone] Total Iron Binding Capacity 331 g/dL N 250-450 Transferrin %Saturation 26 % N 12-57 @[facility] Pat Id: [id number] @[facility] Req #: [id number] Is Patient Fasting? Unknown Vitamin 10/29/2015 [facility] Vitamin 29.6 Low 30.0-100.0 37 D,25-Hydroxy [address] D,25-Hydroxy ng/[place] [address] [phone] @[facility] Pat Id: [id number] @[facility] Req #: [id number] Laboratory test 10/26/2015 [facility] Troponin-I < 0.015 ng/mL N 38, 39 finding [address] [place] [address] [phone] 1 Load Blocker: [id number] 2 F33.1, M15.9, N95.1, N66.09, Z00.00, E55.9 3 Note: Persistent reduction for 3 months or more in an eGFR <60 mL/min/1.73 m2 defines CKD. Patients with eGFR values >/=60 mL/min/1.73 m2 may also have CKD if evidence of persistent proteinuria is present. The original MDRD equation for estimated GFR is not valid for patients less than 18 years of age. Additional information may be found at www.kdoqi.org. 4 Reference Guidelines*: Desirable: ........... < 200 mg/dL Borderline High: ..... 200-239 mg/dL High: ................ >=240 mg/dL * The National Cholesterol Education Program (NCEP) 5 Reference Guidelines*: Normal: ............. < 150 mg/dL Borderline High: .... 150-199 mg/dL High: ............... 200-499 mg/dL Very High: .......... > 500 mg/dL * Source: National Cholesterol Education Program (NCEP) 6 Reference Guidelines*: Low HDL: ..... < 40 mg/dL Normal: ..... 40-60 mg/dL Desirable: ... > 60 mg/dL *The National Cholesterol Education Program(NCEP) 7 Reference Guidelines*: Optimal:........... <100 mg/dL Near Optimal....... 100-129 mg/dL Borderline High.... 130-159 mg/dL High............... 160-189 mg/dL Very High.......... >=190 mg/dL * Source: National Cholesterol Education Program (NCEP) 8 Vitamin D deficiency has been defined by the [place] [employer] and an Endocrine Society practice guideline as a level of serum 25-OH vitamin D less than 20 ng/mL (1,2). The Endocrine Society went on to further define vitamin D insufficiency as a level between 21 and 29 ng/mL (2). 1. IOM ([place] [employer]). 2010. Dietary reference intakes for calcium and D. [place]: The National Academies Press. 2. Ronald MF, [place] GILMORE, Mitchell HARRIS, et al. Evaluation, treatment, and prevention of vitamin D deficiency: an Endocrine Society clinical practice guideline. JCEM. 2010; 96(7):1911-30. Performed at: - [facility] [id number] Tank Pumper: Camryn Burgess MD, Phone: [phone] 9 N39.3 10 10,000 - 50,000 CFU/mL 11 M25.559,R20.2,R53.82 12 Note: Persistent reduction for 3 months or more in an eGFR <60 mL/min/1.73 m2 defines CKD. Patients with eGFR values >/=60 mL/min/1.73 m2 may also have CKD if evidence of persistent proteinuria is present. The original MDRD equation for estimated GFR is not valid for patients less than 18 years of age. Additional information may be found at www.kdoqi.org. 13 M25.549,M25.50 14 Negative <20 Weak positive 20 - 39 Moderate positive 40 - 59 Strong positive >59 15 Performed at: - [facility] [id number] Tank Pumper: Hector Calderon MD, Phone: [phone] Performed at: - [facility] [address] [id number] Tank Pumper: Camryn Burgess MD, Phone: [phone] 16 Method: Sediplast Modified Westergren 17 N39.0 18 CULTURE TO FOLLOW 19 URINE, CLEAN CATCH 20 URINE, CLEAN CATCH 21 10,000 - 50,000 CFU/mL 22 N20.0 23 Percentage (Represents the % composition) 24 No Nidus visualized 25 Specimen quantity insufficient for verification by repeat analysis. 26 Photograph will follow under separate cover. 27 Physician questions regarding Calculi Analysis contact [facility] at: [phone]. 28 Calculi report with photograph will follow via computer, mail or coal mine inspector delivery. 29 This test was developed and its performance characteristics determined by [facility]. It has not been cleared or approved by the Food and Drug Administration. Performed at: [facility] [id number] Tank Pumper: Hector Calderon MD, Phone: [phone] KIDNEY STONE 31 URINE, CLEAN CATCH 32 sharp pain in right side 33 Note: Persistent reduction for 3 months or more in an eGFR <60 mL/min/1.73 m2 defines CKD. Patients with eGFR values >/=60 mL/min/1.73 m2 may also have CKD if evidence of persistent proteinuria is present. The original MDRD equation for estimated GFR is not valid for patients less than 18 years of age. Additional information may be found at www.kdoqi.org. 34 URINE, CLEAN CATCH 35 Method: Quidel QuickVue One-Step Immunoassay 36 M25.559 M79.669 M79.669 M25.559 M79.669 37 Vitamin D deficiency has been defined by the [place] [employer] and an Endocrine Society practice guideline as a level of serum 25-OH vitamin D less than 20 ng/mL (1,2). The Endocrine Society went on to further define vitamin D insufficiency as a level between 21 and 29 ng/mL (2). 1. IOM ([place] [employer]). 2010. Dietary reference intakes for calcium and D. [place]: The National Academies Press. 2. Ronald MF, [place] GILMORE, Mitchell HARRIS, et al. Evaluation, treatment, and prevention of vitamin D deficiency: an Endocrine Society clinical practice guideline. JCEM. 2010; 96(4):4048-30. Performed at: RN - [facility] [address] [id number] Tank Pumper: Camryn Burgess MD, Phone: [phone] 38 HIGH BLOOD PRESSURE, CP 39 0.0 - 0.045 ng/mL: Normal 0.046 - 0.5 ng/mL: Suggestive 0.6 - 1.5 ng/mL: Consistent Procedures Date Code Description Status 04/07/2018 [id number] Mammogram Completed 01/13/2018 80618 Brief Emotional/Behav Assessment W/ Scoring Doc Per Completed Standard Inst 11/24/2017 81072 Brief Emotional/Behav Assessment W/ Scoring Doc Per Completed Standard Inst 02/20/2016 27208 EKG-Tracing And Report Completed 11/17/2015 [id number] Bone Mineral Density Test Completed 10/29/2015 51587 EKG-Tracing And Report Completed 09/05/2013 [id number] Mammogram Completed 08/18/2012 [id number] Mammogram Completed 08/15/2011 67344 Anesthesia, Extraperitoneal Lower Abdomen Not Completed Otherwise Spec 02/03/2011 [id number] Mammogram Completed 12/17/2010 [id number] Colonoscopy Completed 11/27/2010 89605 Anesthesia, Vaginal Hysterectomy Completed 02/28/2010 94840 Echocardiogram Complete Completed 02/28/2010 81491 Holter Monitor 24HR Inter/Report Completed 02/28/2010 76511 Stress Test Interpre And Report Only Completed 02/28/2010 29981 Stress Test Physician Super Only Completed 01/17/2010 [id number] Mammogram Completed Encounters Type Date Location Provider Dx Diagnosis Office Visit 03/25/2018 Primary Care Ingrid Espinoza MD F41.9 Anxiety disorder, 4:00p Office unspecified F33.1 Major depressive disorder, recurrent, moderate M15.9 Polyosteoarthritis, unspecified M76.62 Achilles tendinitis, left leg N95.1 Menopausal and female climacteric states Office Visit 01/13/2018 4:00p Primary Care Ingrid Espinoza, F41.9 Anxiety disorder, Office MD unspecified F33.1 Major depressive disorder, recurrent, moderate M15.9 Polyosteoarthritis, unspecified Office Visit 11/24/2017 3:00p Primary Care Olga, Ingrid, F41.9 Anxiety disorder, Office MD unspecified F51.01 Primary insomnia F33.1 Major depressive disorder, recurrent, moderate M15.9 Polyosteoarthritis, unspecified Office Visit 11/02/2017 3:30p Primary Care Office Shelbie Early, MS, R05 [employer], CNM N39.46 Mixed incontinence R47.02 Dysphasia R20.2 Paresthesia of skin F33.1 Major depressive disorder, recurrent, moderate Office Visit 10/21/2017 11:00a Primary Care Shelbie Early, F51.01 Primary Office MS, [employer], CNM insomnia N39.3 Stress incontinence (female) (male) F33.1 Major depressive disorder, recurrent, moderate R05 Cough R47.02 Dysphasia Office Visit 02/23/2017 2:00p Primary Care Ingrid Espinoza, G47.00 Insomnia , Office MD unspecified F41.9 Anxiety disorder, unspecified F33.1 Major depressive disorder, recurrent, moderate R20.2 Paresthesia of skin Office Visit 09/29/2016 3:40p Primary Care Huma Espinozaa, N20.0 Calculus of Office MD kidney M25.559 Pain in unspecified hip I10 Essential (primary) hypertension G47.00 Insomnia, unspecified M76.62 Achilles tendinitis, left leg M79.669 Pain in unspecified lower leg Office Visit 07/09/2016 2:00p Primary Care Ingrid Espinoza, N39.0 Urinary tract Office MD infection, site not specified Office Visit 07/01/2016 11:40a Primary Care Huma Espinozaa, N20.0 Calculus of kidney Office MD Office Visit 05/21/2016 10:40a Primary Care Olga Ingrid, N20.0 Calculus of kidney Office MD M54.2 Cervicalgia M25.559 Pain in unspecified hip Office Visit 04/28/2016 3:40p Primary Care Olga Ingrid, I10 Essential ( primary) Office MD hypertension F41.9 Anxiety disorder, unspecified R45.4 Irritability and anger G47.00 Insomnia, unspecified M54.2 Cervicalgia Office Visit 02/20/2016 11:00a Primary Care Ingrid Espinoza, M62.830 Muscle spasm Office MD of back I10 Essential (primary) hypertension F41.9 Anxiety disorder, unspecified Office Visit 01/28/2016 3:40p Primary Care Ingrid Espinoza, Jeanne Essential ( primary) Office hypertension M25.559 Pain in unspecified hip G47.00 Insomnia, unspecified R45.4 Irritability and anger Office Visit 10/29/2015 11:00a Primary Care Ingrid Espinoza, I10 Essential ( primary) Office hypertension R12 Heartburn M25.559 Pain in unspecified hip M79.669 Pain in unspecified lower leg R07.9 Chest pain, unspecified Office Visit 10/26/2015 10:43a Cardiology Martin Chery R07.9 Chest pain, Office Khushboo Baig, [facility] unspecified Plan of Treatment 08/03/2018 - Ingrid Espinoza MDF41.9 Anxiety disorder, unspecifiedComments:- paroxetine 20mg did not help and tapered off-hydroxyzine PRN for anxiety, but does not help as much-Duloxetine has not helped ; tapered off-Sertraline increased to 100mg at night and doing better->has insomnia advised to change to day time-Engage in self care, take breaks and reach out to friends and family -Acute stress situation with mom has hhjqnijdP79.1 Major depressive disorder, recurrent, moderateComments:-Provided Support to patient -paroxetine ineffective, duloxetine ineffective-has tried Wellbutrin and lexapro in the past but cannot remember efficacy sertraline 100mg and sx improved personal stressors with mother with dementia who moved in and this is improving -Advised continuing to take breaks,having other family members help so she can engage in self care and time with spouse->she is doing this and does have help-pt will engage in exercise as wellM15.9 Polyosteoarthritis, unspecifiedComments:-More pain in hips and has more pain with walking for extended period of time and at night-Saw Rheumin past FELIPE was positive, tested neg for lupus, sjogrens, RA and Rheum treated for UCTD but she didn't have any benefit from treatment-Pain is more localized in hips, previous xray showed mild arthritis and referred to Ortho ->offered PT, hip injections->will consider-She will continue to exercise on her own and see if that helps-continue Aleve PRNN95.1 Menopausal and female climacteric statesNew Labs:CBC W/Automated Diff, Ordered: LDL Cholesterol Profile, Ordered: 08/03/18Comments:-try pine bark extract, evening prim ventura oil, black cohosh tea-has vaginal dryness, discussed premarin cream and advised her to try replens first and can use premarin cream if that doesn't workG56.03 Carpal tunnel syndrome, bilateral upper limbsNew Medication: Wrist Brace Ultra-Lite Carpal Tunnel/One Size - wear on right wrist and left wristComments:-use wrist brace, if sx progress and conservative therapy does not work can check EMG and Ortho referral (hand specialists)N39.3 Stress incontinence (female) (male)Comments:-Would like referral to Dr. Luna again- Couldn't make last apppointmentReferral:Martha Lee M.D., UrologyAllFollow up:fasting blood work in 4 months followup in [address] Bennett
--- OUTSIDE RECORDS SUMMARY | 2018-08-27 19:19 | XMS REPORT | Continuity of Care Document ---
:1960 External Reference #:[id number] Author Name Martha Lee M.D. Address [address] [facility] [address] [place] [address] Care Team Providers Name Role Phone Ingrid Espinoza MD Care Team Information [employer] Unavailable Ingrid Espinoza MD Primary Care Physician Unavailable Payers Date Identification Numbers Payment Provider Subscriber Policy Number: [id number] Timothy Navas PayID: [id number] [address] [address] [place] [address] Problems Active Problems Provider Date Benign essential hypertension Ingrid Espinoza MD Onset: 10/29/2015 Arthralgia of the pelvic region and thigh Ingrid Espinoza MD Onset: 01/28/2016 Feeling irritable Ingrid Espinoza MD Onset: 04/28/2016 Insomnia Ingrid Espinoza MD Onset: 04/28/2016 H/O: urinary stone Martha Lee M.D. Onset: 08/17/2018 Mixed urinary incontinence Martha Lee M.D. 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's Independent with all ADL's ETOH Use Rarely consumes alcohol Recreational Drug Use Former Drug User [facility] Tobacco Use Start: Unknown Patient denies history of smoking Smoking Status Reviewed: 08/06/18 Patient denies history of smoking Allergies, Adverse Reactions, Alerts Active Allergies Reaction Severity Comments Date Thimerosal 10/29/2015 Medications Active Medications SIG Qnty Indications Ordering Date Provider Wrist Brace Ultra-Lite wear on right 1Pair G56.03 Olga, Ingrid, 2018 Carpal Tunnel/One Size wrist and left MD wrist Misc Ergocalciferol 1 cap by mouth 4caps Olga, Ingrid, 05/24/2018 [id number] every week for MD Capsules 12 weeks Sertraline HCL 1 by mouth 30tabs Olga, Ingrid, 01/13/2018 100mg everyday MD Tablets Hydroxyzine HCL take one tablet 30tabs Gagen, 02/23/2017 10mg by mouth at [place], [place], Tablets night as needed VICKY-C, COCO for itching and insomnia Allergy Injections Olga, Ingrid, 04/28/2016 MD History Medications Sertraline HCL 1 tab by mouth 60tabs Olga, Ingrid, 11/24/2017 - 25mg Tablets every night x 2 MD 01/13/2018 weeks then take 2 tabs at night Zolpidem Tartrate take one every 30tabs F51.01 Gagen, 10/21/2017 - 5mg night for [place], 03/25/2018 Tablets insomnia MS, VISION THERAPIST-C, CNM Reference #: [id number] Benzonatate take one capsule 30caps R05 Gagen, 10/21/2017 - 200mg Capsules every 8 hours as [place], 03/25/2018 needed MS, VISION THERAPIST-C, CNM Duloxetine HCL 1 tabs by mouth 60caps Olga, Ingrid, 02/23/2017 - 30mg Caps DR every evening 01/13/2018 Part Ciprofloxacin HCL 1 tab by mouth 10tabs Olga, Ingrid, 07/09/2016 - 500mg twice daily for 5 MD Unknown Tablets days Ambien take one tab by 30tabs Gagen, 04/28/2016 - 5mg Tablets mouth at night as [place], 11/02/2017 needed as needed MS, VISION THERAPIST-C, CNM insomnia Ref # [id number] Diclofenac Sodium 2 g topical on 100gm Olga Ingrid, 04/28/2016 - 1% Gel back of neck Unknown twice a day as needed Tizanidine HCL 1 tab by mouth 60tabs Ingrid Espinoza, 04/28/2016 - 4mg Tablets two times a day Unknown as needed for muscle spasm/pain Paroxetine HCL 1 by mouth every 30tabs Ingrid Espinoza, 02/20/2016 - 20mg Tablets day 02/23/2017 Xanax 1 tab by mouth 30tabs Ingrid Espinoza, 02/20/2016 - 0.25mg Tablets twice daily as MD Unknown needed for severe anxiety Cyclobenzaprine HCL [...] Suspension Vital Signs Date Vital Result Comment 08/17/2018 3:35pm BP Systolic 149 mmHg BP Diastolic 83 mmHg Body Temperature 98.3 F Heart Rate 89 /min Respiratory Rate 15 /min Height 65.5 inches 5'5.50" Weight 197.38 lb BMI (Body Mass Index) 32.3 kg/m2 BSA (Body Surface Area) 1.98 m2 [place] body weight in kilograms 58 kg O2 % BldC Oximetry 96 % Pain Level 0 08/03/2018 4:02pm BP Systolic Sitting Left Arm 116 mmHg BP Diastolic Sitting Left Arm 76 mmHg Body Temperature 99.1 F Heart Rate 88 /min Respiratory Rate 20 /min Height 65.5 inches 5'5.50" Weight 194.00 lb BMI (Body Mass Index) 31.8 kg/m2 BSA (Body Surface Area) 1.96 m2 [place] body weight in kilograms 58 kg O2 % BldC Oximetry 97 % Ra 03/25/2018 3:57pm BP Systolic Sitting Right Arm 135 mmHg BP Diastolic Sitting Right Arm 87 mmHg Body Temperature 99.2 F Heart Rate 78 /min Height 65.5 inches 5'5.50" Weight 195.00 lb BMI (Body Mass Index) 32.0 kg/m2 BSA (Body Surface Area) 1.97 m2 [place] body weight in kilograms 58 kg O2 % BldC Oximetry 96 % 01/13/2018 4:05pm BP Systolic Sitting Left Arm 124 mmHg BP Diastolic Sitting Left Arm 80 mmHg Body Temperature 98.7 F Heart Rate 78 /min Respiratory Rate 16 /min Height 65.5 inches 5'5.50" Weight 188.00 lb BMI (Body Mass Index) 30.8 kg/m2 BSA (Body Surface Area) 1.94 m2 [place] body weight in kilograms 58 kg O2 % BldC Oximetry 97 % Ra 11/24/2017 2:59pm BP Systolic Sitting Right Arm 135 mmHg BP Diastolic Sitting Right Arm 92 mmHg Body Temperature 98.2 F Heart Rate 90 /min Respiratory Rate 16 /min Height 65.5 inches 5'5.50" Weight 187.00 lb BMI (Body Mass Index) 30.6 kg/m2 BSA (Body Surface Area) 1.93 m2 [place] body weight in kilograms 58 kg O2 % BldC Oximetry 97 % 11/02/2017 3:31pm BP Systolic 133 mmHg BP Diastolic 92 mmHg Body Temperature 97.7 F Heart Rate 76 /min Respiratory Rate 18 /min Height 65.5 inches 5'5.50" Weight 185.12 lb BMI (Body Mass Index) 30.3 kg/m2 BSA (Body Surface Area) 1.93 m2 [place] body weight in kilograms 58 kg O2 % BldC Oximetry 97 % 10/21/2017 11:05am BP Systolic Sitting Right Arm 120 mmHg BP Diastolic Sitting Right Arm 72 mmHg Body Temperature 98.9 F Heart Rate 74 /min Respiratory Rate 18 /min Height 65.5 inches 5'5.50" Weight 185.00 lb BMI (Body Mass Index) 30.3 kg/m2 BSA (Body Surface Area) 1.92 m2 [place] body weight in kilograms 58 kg O2 % BldC Oximetry 97 % ra 02/23/2017 1:39pm BP Systolic 139 mmHg BP Diastolic 95 mmHg Heart Rate 82 /min Respiratory Rate 14 /min Height 65.5 inches 5'5.50" Weight 195.50 lb BMI (Body Mass Index) 32.0 kg/m2 BSA (Body Surface Area) 1.97 m2 [place] body weight in kilograms 58 kg O2 % BldC Oximetry 97 % 09/29/2016 3:44pm BP Systolic Sitting Right Arm 117 mmHg BP Diastolic Sitting Right Arm 79 mmHg Body Temperature 99.1 F Heart Rate 70 /min Height 65.5 inches 5'5.50" Weight 185.00 lb BMI (Body Mass Index) 30.3 kg/m2 BSA (Body Surface Area) 1.92 m2 [place] body weight in kilograms 58 kg O2 % BldC Oximetry 95 % ra 07/09/2016 2:00pm BP Systolic Sitting Right Arm 120 mmHg BP Diastolic Sitting Right Arm 80 mmHg Body Temperature 98.1 F Height 65.5 inches 5'5.50" Weight 180.00 lb BMI (Body Mass Index) 29.5 kg/m2 BSA (Body Surface Area) 1.90 m2 [place] body weight in kilograms 58 kg 07/01/2016 11:42am BP Systolic 116 mmHg BP Diastolic 78 mmHg Heart Rate 65 /min Height 65.5 inches 5'5.50" Weight 181.00 lb BMI (Body Mass Index) 29.7 kg/m2 BSA (Body Surface Area) 1.91 m2 [place] body weight in kilograms 58 kg 05/21/2016 [...] kg/m2 BSA (Body Surface Area) 1.96 m2 [place] body weight in kilograms 58 kg Results Test Date Facility Test Result H/L Range Note Laboratory test [facility] Laboratory Rapid Strep Negative Negative 1 finding 9 [phone] Molecular LDL Cholesterol [facility] Cholesterol 242 mg/dL High <200 2, 3 Profile [address] [place], [place] [id number] [phone] Triglycerides 218 mg/dL High <150 4 HDL Cholesterol 50 mg/dL >40 5 LDL-Cholesterol 148 mg/dL < 100 6 Reflex add FT3? Y Reflex add FT4? Y Laboratory test 04/26/2018 [facility] Vitamin 16.2 Low 30.0-100.0 [address] D,25-Hydroxy ng/[place] [address] [phone] Comprehensive 04/26/2018 [facility] Glucose 108 High 74-106 Metabolic Panel [address] mg/dL [place], [place] [id number] [phone] BUN 12 mg/dL Normal 7-18 Creatinine 0.6 mg/dL Normal 0.6-1.3 Glom Filtration Rate, Estimate >60 mL/min >60 If >60 mL/min >60 8 BUN/Creat 20.0 ratio Sodium 139 mmol/L Normal 136-145 Potassium 4.5 mmol/L Normal 3.5-5.1 Chloride 106 mmol/L Normal 98-107 Carbon Dioxide 28 mmol/L Normal 21-32 Anion Gap 5 mEq/L Low 8-16 Calcium 8.7 mg/dL Normal 8.5-10.1 Total Protein 7.5 g/dL Normal 6.4-8.2 Albumin 4.1 g/dL Normal 3.4-5.0 Globulin 3.4 g/dL Normal 1.9-4.3 Alb/Glob 1.2 ratio Bilirubin,Total 0.4 mg/dL Normal 0.2-1.0 Sgot/Ast 17 U/L Normal 15-37 SGPT/Alt 23 U/L Normal 12-78 Alkaline Phosphatase 65 U/L Normal 45-117 Reflex add FT3? Y Reflex add FT4? Y CBC W/Automated 04/26/2018 [facility] White Blood 4.5 K/uL Normal 3.1-10.[address] [place] [address] [phone] Red Blood Count 4.65 M/uL Normal 3.90-5.40 Hemoglobin 14.2 gm/dL Normal 11.6-15.8 Hematocrit 42.9 % Normal 36.0-46.1 Mean Cell Volume 92.3 fl Normal 80.9-99.0 Mean Corpuscular HGB 30.5 pg Normal 25.9-32.7 Mean Corpuscular HGB Conc 33.1 g/dL Normal 30.8-34.3 Platelet Count 241 K/uL Normal 155-360 Red Cell Distri Width SD 45.5 fl Normal 36-47 Red Cell Distri Width %CV 13.7 % Normal 11.7-14.4 Mean Platelet Volume 11.0 fL Normal 8.9-12.4 Neut% 53.1 % Normal 40.4-72.8 Lymph % 34.9 % Normal 20.0-42.0 [place] % 8.2 % Normal 4.3-13.2 Eo% 2.9 % Normal 0.0-6.6 Bas% 0.9 % Normal 0.0-1.1 Neut# 2.41 K/uL Normal 1.8-7.0 Lymph # 1.58 K/uL Normal 1.0-4.0 [place] # 0.37 K/uL Normal 0.3-0.9 Eos # 0.13 K/uL Normal 0.0-0.5 Baso # 0.04 K/uL Normal 0.0-0.1 TSH Reflex 04/26/2018 [facility] Thyroid Stim 1.50 uIU/mL Normal 0.30-4.20 FT4 And/Or [address] Hormone FT3 [place] [address] [phone] Reflex add FT3? Y Reflex add FT4? Y Urine Culture 10/21/2017 [facility] Urine Culture URETHRAL ANDREW 9 [address] [place] [address] [phone] Quantity 10,000 - 50,000 <SEE NOTE> 10 Comprehensive 02/23/2017 [facility] Glucose 87 mg/dL Normal 74-106 11 Metabolic Panel [address] [place] [address] [phone] BUN 14 mg/dL Normal 7-18 Creatinine 0.5 mg/dL Low 0.6-1.3 Glom Filtration Rate, Estimate >60 mL/min >60 If >60 mL/min >60 12 BUN/Creat 28.0 ratio Sodium 140 mmol/L Normal 136-145 Potassium 4.2 mmol/L Normal 3.5-5.1 Chloride 106 mmol/L Normal 98-107 Carbon Dioxide 27 mmol/L Normal 21-32 Anion Gap 7 mEq/L Low 8-16 Calcium 9.5 mg/dL Normal 8.5-10.1 Total Protein 7.9 g/dL Normal 6.4-8.2 Albumin 4.2 g/dL Normal 3.4-5.0 Globulin 3.7 g/dL Normal 1.9-4.3 Alb/Glob 1.1 ratio Bilirubin,Total 0.4 mg/dL Normal 0.2-1.0 Sgot/Ast 21 U/L Normal 15-37 SGPT/Alt 34 U/L Normal 12-78 Alkaline Phosphatase 84 U/L Normal 45-117 CBS W/Automated 02/23/2017 [facility] White Blood 7.9 K/uL Normal 3.1-10.[address] [place] [address] [phone] Red Blood Count 4.89 M/uL Normal 3.90-5.40 Hemoglobin 14.9 gm/dL Normal 11.6-15.8 Hematocrit 44.0 % Normal 36.0-46.1 Mean Cell Volume 90.0 fl Normal 80.9-99.0 Mean Corpuscular HGB 30.5 pg Normal 25.9-32.7 Mean Corpuscular HGB Conc 33.9 g/dL Normal 30.8-34.3 Platelet Count 296 K/uL Normal 155-360 Red Cell Distri Width SD 43.5 fl Normal 3-47 Red Cell Distri Width %CV 13.5 % Normal 11.7-14.4 Mean Platelet Volume 11.5 fL Normal 8.9-12.4 Neut% 54.5 % Normal 40.4-72.8 Lymph % 34.7 % Normal 20.0-42.0 [place] % 8.3 % Normal 4.3-13.2 Eo% 1.9 % Normal 0.0-6.6 Bas% 0.6 % Normal 0.0-1.1 Neut# 4.32 K/uL Normal 1.8-7.0 Lymph # 2.75 K/uL Normal 1.0-4.0 [place] # 0.66 K/uL Normal 0.3-0.9 Eos # 0.15 K/uL Normal 0.0-0.5 Baso # 0.05 K/uL Normal 0.0-0.1 Laboratory test 02/23/2017 [facility] Thyroid 1.84 Normal 0.30-4.[address] Stim uIU/[place] [address] Hormone [phone] Magnesium 2.4 mg/dL Normal 1.8-2.4 Vitamin B12 504 pg/mL Normal 193-986 Iron-Tibc-%Sat 02/23/2017 [facility] Serum Iron 136 g/dL Normal 50-170 [address] [place], [place] [address] [phone] Total Iron Binding Capacity 358 g/dL Normal 250-450 Transferrin %Saturation 38 % Normal 12-57 Laboratory test 02/23/2017 [facility] Ferritin 55 ng/mL Normal 8-[address] [place], [place] [id number] [phone] Free T4 0.87 ng/dL Normal 0.76-1.46 Laboratory 10/02/2016 [facility] Rheumatoid < 10.0 Normal 0.0-15.0 13 test finding [address] Factor Screen IU/mL [place], [place] [address] [phone] CCP Igg/Iga 10/02/2016 [facility] CCP Igg/Iga 4 units 0-19 14 Antibodies [address] [facility] [place] [address] [phone] Laboratory 10/02/2016 [facility] Anti-Nuclear Negative Negative 15 test finding [address] [facility] Antibodies AU/[place] [address] Direct [phone] Sedimentation Rate 13 mm/hr Normal 0-30 16 Urine Culture 07/09/2016 [facility] Urine Culture URETHRAL ANDREW 17 [address] [place] [address] [phone] Quantity 10,000 - 50,000 <SEE NOTE> Normal 18 Ua Routine 07/09/2016 [facility] Urine Color DK YELLOW Yellow [address] [place], [place] [address] [phone] Urine Clarity CLEAR Clear Urine Glucose - Dipstick NEGATIVE mg/dL Negative Urine Bilirubin - Dipstick NEGATIVE Negative Urine Ketone NEGATIVE mg/dL Negative Urine Specific [place] <=1.005 Low 1.010-1.030 Urine Blood LARGE Abnormal Negative Urine PH 5.0 Low 6.5-7.5 Urine Protein - Dipstick NEGATIVE mg/dL Negative Urine Urobilinogen - Dipstick 1.0 E.U./dL Normal 0.2-1.0 Urine Nitrite - Dipstick POSITIVE Abnormal Negative Urine Leuk Esterase NEGATIVE Negative Urine RBC NONE SEEN rbc/hpf 0-2 Urine WBC 2-5 wbc/hpf 0-7 Urine Epithelial Cells VERY FEW /lpf None Seen Urine Bacteria MODERATE Abnormal None Seen Source: URINE, CLEAN CAT <SEE NOTE> 19 Culture If 07/09/2016 [facility] Culture If CULTURE TO 20 Indicated Comment [address] [facility] Indicated Comment FOLLO <[place] [address] NOTE> [phone] Source: URINE, CLEAN CAT <SEE NOTE> 21 Calculi,Urinary,With Photo 07/01/2016 [facility] Color Brown . 22 [address] [place] [address] [phone] Size 1x1x1 mm . Weight 1.9 mg . Composition (SEE NOTE) 23 Ca Oxalate,Monohydrate 95 % . Calcium Phosphate 05 % . Nidus No Nidus visuali <SEE NOTE> . 24 Comment Note: . 25 . (SEE NOTE) 26 . (SEE NOTE) 27 . (SEE NOTE) 28 Disclaimer (SEE NOTE) 29 Ua Routine 06/03/2016 [facility] Urine Color YELLOW Yellow 30 [address] [place] [address] [phone] Urine Clarity SL CLOUDY Clear Urine Glucose - Dipstick NEGATIVE mg/dL Negative Urine Bilirubin - Dipstick NEGATIVE Negative Urine Ketone 15 mg/dL High Negative Urine Specific [place] 1.015 Normal 1.010-1.030 Urine Blood LARGE Abnormal Negative Urine PH 8.5 High 6.5-7.5 Urine Protein - Dipstick NEGATIVE mg/dL Negative Urine Urobilinogen - Dipstick 0.2 E.U./dL Normal 0.2-1.0 Urine Nitrite - Dipstick NEGATIVE Negative [...] urine sediment light micky by light microscopy pH Ur Strip.auto 06/03/2016 N2N/CCD Import pH Ur Strip.auto 8.5 High 6.5- 7.5 Urobilinogen Ur 06/03/2016 N2N/CCD Import Urobilinogen Ur 0.2 0.2-1.0 Strip-aCnc Strip-[facility] Urine hemoglobin 06/03/2016 N2N/CCD Import Urine hemoglobin Large High Negative detection by detection by automated test automated test strip strip Urine glucose 06/03/2016 N2N/CCD Import Urine glucose Negative Negative measurement by measurement by automated test automated test strip strip (mass/volume) Urine appearance 06/03/2016 N2N/CCD Import Urine appearance SL Cloudy Clear determination determination Specific gravity 06/03/2016 N2N/CCD Import Specific gravity 1.015 1.010- 1.030 of urine by of urine by automated test automated test strip strip Prot Ur 06/03/2016 N2N/CCD Import Prot Ur Negative Negative Strip.auto-mCnc Strip.auto-mCnc Nitrite Ur Ql 06/03/2016 N2N/CCD Import Nitrite Ur Ql Negative Negative Strip.auto Strip.auto Leukocyte 06/03/2016 N2N/CCD Import Leukocyte Negative Negative esterase Ur Ql esterase Ur Ql Strip.auto Strip.auto Ketones Ur 06/03/2016 N2N/CCD Import Ketones Ur 15 High Negative Strip.auto-mCnc Strip.auto-mCnc Epithelial cells 06/03/2016 N2N/CCD Import Epithelial cells Very Few None Seen [presence] in [presence] in urine sediment by urine sediment l by light microscopy Color Ur 06/03/2016 N2N/CCD Import Color Ur Yellow Yellow Bilirub Ur Ql 06/03/2016 N2N/CCD Import Bilirub Ur Ql Negative Negative Strip.auto Strip.auto Globulin Ser 05/14/2016 N2N/CCD Import Globulin Ser 3.5 1.9-4.3 Calc-mCnc Calc-mCnc Glucose 05/14/2016 N2N/CCD Import Glucose 137 High 74-106 [mass/volume] in [mass/volume] in serum or plasma serum or plasma Hct VFr Bld Auto 05/14/2016 N2N/CCD Import Hct VFr Bld Auto 41.5 36.0- 46.1 Hgb Bld-mCnc 05/14/2016 N2N/CCD Import Hgb Bld-mCnc 14.0 11.6-15.8 Lipase SerPl-cCnc 05/14/2016 N2N/CCD Import Lipase 96 73-393 SerPl-cCnc Lymphocytes # Bld 05/14/2016 N2N/CCD Import Lymphocytes # 1.28 1.0-4.0 Auto Bld Auto Lymphocytes/leuk 05/14/2016 N2N/CCD Import Lymphocytes/leuk 25.9 20.0- 42.0 NFr Bld Auto NFr Bld Auto MCH RBC Qn Auto 05/14/2016 N2N/CCD Import MCH RBC Qn Auto 31.2 25.9- 32.7 MCHC RBC 05/14/2016 N2N/CCD Import MCHC RBC 33.7 30.8-34.3 Auto-mCnc Auto-mCnc MCV RBC Auto 05/14/2016 N2N/CCD Import MCV RBC Auto 92.4 80.9-99.0 Monocytes # Bld 05/14/2016 N2N/CCD Import Monocytes # Bld 0.36 0.3-0.9 Auto Auto Monocytes/leuk 05/14/2016 N2N/CCD Import Monocytes/leuk 7.3 4.3-13.2 [...] mg/dL High 74-106 32 Metabolic Panel [address] [place], [place] [address] [phone] BUN 15 mg/dL Normal 7-18 Creatinine 0.6 mg/dL Normal 0.6-1.3 Glom Filtration Rate, Estimate >60 mL/min >60 If >60 mL/min >60 33 BUN/Creat 25.0 ratio Sodium 143 mmol/L Normal 136-145 Potassium 3.9 mmol/L Normal 3.5-5.1 Chloride 109 mmol/L High 98-107 Carbon Dioxide 24 mmol/L Normal 21-32 Anion Gap 10 mEq/L Normal 8-16 Calcium 8.3 mg/dL Low 8.5-10.1 Total Protein 7.4 g/dL Normal 6.4-8.2 Albumin 3.9 g/dL Normal 3.4-5.0 Globulin 3.5 g/dL Normal 1.9-4.3 Alb/Glob 1.1 ratio Bilirubin,Total 0.3 mg/dL Normal 0.2-1.0 Sgot/Ast 39 U/L High 15-37 SGPT/Alt 51 U/L Normal 12-78 Alkaline Phosphatase 74 U/L Normal 45-117 CBS W/Automated 05/14/2016 [facility] White Blood 4.9 K/uL Normal 3.1-10.[address] [place] [address] [phone] Red Blood Count 4.49 M/uL Normal 3.90-5.40 Hemoglobin 14.0 gm/dL Normal 11.6-15.8 Hematocrit 41.5 % Normal 36.0-46.1 Mean Cell Volume 92.4 fl Normal 80.9-99.0 Mean Corpuscular HGB 31.2 pg Normal 25.9-32.7 Mean Corpuscular HGB Conc 33.7 g/dL Normal 30.8-34.3 Platelet Count 183 K/uL Normal 150-400 Red Cell Distri Width SD 46.4 fl Normal 3-47 Red Cell Distri Width %CV 14.1 % Normal 11.7-14.4 Mean Platelet Volume 11.6 fL Normal 8.9-12.4 Neut% 63.4 % Normal 40.4-72.8 Lymph % 25.9 % Normal 20.0-42.0 [place] % 7.3 % Normal 4.3-13.2 Eo% 2.6 % Normal 0.0-6.6 Bas% 0.8 % Normal 0.0-1.1 Neut# 3.13 K/uL Normal 1.8-7.0 Lymph # 1.28 K/uL Normal 1.0-4.0 [place] # 0.36 K/uL Normal 0.3-0.9 Eos # 0.13 K/uL Normal 0.0-0.5 Baso # 0.04 K/uL Normal 0.0-0.1 pH Ur Strip.auto 05/14/2016 N2N/CCD Import pH Ur Strip.auto 7.0 6.5-7.5 Urobilinogen Ur 05/14/2016 N2N/CCD Import Urobilinogen Ur 0.2 0.2-1.0 Strip-aCnc Strip-[facility] Urine hemoglobin 05/14/2016 N2N/CCD Import Urine hemoglobin [...] Ql Micro Ql Micro Ua Routine 05/14/2016 [facility] Urine Color YELLOW Yellow [address] [place] [address] [phone] Urine Clarity CLEAR Clear Urine Glucose - Dipstick NEGATIVE mg/dL Negative Urine Bilirubin - Dipstick NEGATIVE Negative Urine Ketone NEGATIVE mg/dL Negative Urine Specific [place] 1.010 Normal 1.010-1.030 Urine Blood MODERATE Abnormal Negative Urine PH 7.0 Normal 6.5-7.5 Urine Protein - Dipstick NEGATIVE mg/dL Negative Urine Urobilinogen - Dipstick 0.2 E.U./dL Normal 0.2-1.0 Urine Nitrite - Dipstick NEGATIVE Negative [...] Bld Auto Bld Auto Basophils # Bld 05/14/2016 N2N/CCD Import Basophils # Bld 0.04 0.0-0.1 Auto Auto BUN/Creat SerPl 05/14/2016 N2N/CCD Import BUN/Creat SerPl 25.0 BUN SerPl-mCnc 05/14/2016 N2N/CCD Import BUN SerPl-mCnc 15 7-18 Anion Gap 05/14/2016 N2N/CCD Import Anion Gap 10 8-16 SerPl-sCnc SerPl-sCnc Albumin/Glob SerPl 05/14/2016 N2N/CCD Import Albumin/Glob SerPl 1.1 Albumin SerPl-mCnc 05/14/2016 N2N/CCD Import Albumin SerPl-mCnc 3.9 3.4- 5.0 Ast SerPl-cCnc 05/14/2016 N2N/CCD Import Ast SerPl-cCnc 39 High 15-37 Alt SerPl-cCnc 05/14/2016 N2N/CCD Import Alt SerPl-cCnc 51 12-78 Alp SerPl-cCnc 05/14/2016 N2N/CCD Import Alp SerPl-cCnc 74 45-117 Laboratory test 05/14/2016 [facility] Lipase 96 U/L Normal 73-[address] [place], [place] [address] [phone] HCG,Serum (Qualitative) NEGATIVE (Negative) 35 Ferritin 10/29/2015 [facility] Ferritin 53 ng/mL Normal 8-252 36 [address] [place] [address] [phone] @[facility] Pat Id: [id number] @[facility] Req #: [id number] Is Patient Fasting? Unknown Iron-Tibc-%Sat 10/29/2015 [facility] Serum Iron 85 g/dL Normal 50-170 [address] [place], [place] [address] [phone] Total Iron Binding Capacity 331 g/dL Normal 250-450 Transferrin %Saturation 26 % Normal 12-57 @[facility] Pat Id: [id number] @[facility] Req #: [id number] Is Patient Fasting? Unknown Vitamin 10/29/2015 [facility] Vitamin 29.6 Low 30.0-100.0 37 D,25-Hydroxy [address] D,25-Hydroxy ng/[place] [address] [phone] @[facility] Pat Id: [id number] @[facility] Req #: [id number] Laboratory test 10/26/2015 [facility] Troponin-I < 0.015 Normal 38, [address] ng/[place] [address] [phone] 1 Herb Doctor: [id number] 2 F33.1, M15.9, N95.1, N66.09, Z00.00, E55.9 3 Reference Guidelines*: Desirable: ........... < 200 mg/dL Borderline High: ..... 200-239 mg/dL High: ................ >=240 mg/dL * The National Cholesterol Education Program (NCEP) 4 Reference Guidelines*: Normal: ............. < 150 mg/dL Borderline High: .... 150-199 mg/dL High: ............... 200-499 mg/dL Very High: .......... > 500 mg/dL * Source: National Cholesterol Education Program (NCEP) 5 Reference Guidelines*: Low HDL: ..... < 40 mg/dL Normal: ..... 40-60 mg/dL Desirable: ... > 60 mg/dL *The National Cholesterol Education Program(NCEP) 6 Reference Guidelines*: Optimal:........... <100 mg/dL Near Optimal....... 100-129 mg/dL Borderline High.... 130-159 mg/dL High............... 160-189 mg/dL Very High.......... >=190 mg/dL * Source: National Cholesterol Education Program (NCEP) 7 Vitamin D deficiency has been defined by the [place] of [employer] and an Endocrine Society practice guideline as a level of serum 25-OH vitamin D less than 20 ng/mL (1,2). The Endocrine Society went on to further define vitamin D insufficiency as a level between 21 and 29 ng/mL (2). 1. IOM ([place] [employer]). 2010. Dietary reference intakes for calcium and D. [place]: The National Academies Press. 2. Ronald MF, [place], Mitchell HARRIS, et al. Evaluation, treatment, and prevention of vitamin D deficiency: an Endocrine Society clinical practice guideline. JCEM. 2010; 96(7):1911-30. Performed at: RN - [facility] [address] [id number] Clinical Psychology Teacher: Camryn Burgess MD, Phone: [phone] Note: Persistent reduction for 3 months or more in an eGFR <60 mL/min/1.73 m2 defines CKD. Patients with eGFR values >/=60 mL/min/1.73 m2 may also have CKD if evidence of persistent proteinuria is present. The original MDRD equation for estimated GFR is not valid for patients less than 18 years of age. Additional information may be found at www.kdo[facility].org. 9 N39.3 10 10,000 - 50,000 CFU/mL [...] 59 Strong positive >59 15 Performed at: [address] [id number] Clinical Psychology Teacher: Hector Calderon MD, Phone: [phone] Performed at: [address] [id number] Clinical Psychology Teacher: Camryn Burgess MD, Phone: [phone] 16 Method: Sediplast Modified [place] 17 N39.0 18 10,000 - 50,000 CFU/mL 19 URINE, CLEAN CATCH 20 CULTURE TO FOLLOW 21 URINE, CLEAN CATCH 22 N20.0 23 Percentage (Represents the % composition) 24 No Nidus visualized 25 Specimen quantity insufficient for verification by repeat analysis. 26 Photograph will follow under separate cover. 27 Physician questions regarding Calculi Analysis contact [facility] at: [phone]. 28 Calculi report with photograph will follow via computer, mail or glass science engineer delivery. 29 This test was developed and its performance characteristics determined by [facility]. It has not been cleared or approved by the Food and Drug Administration. Performed at: [address] [id number] Clinical Psychology Teacher: Hector Calderon MD, Phone: [phone] KIDNEY STONE 31 URINE, CLEAN CATCH [...] D deficiency has been defined by the [place] [employer] and an Endocrine Society practice guideline as a level of serum 25-OH vitamin D less than 20 ng/mL (1,2). The Endocrine Society went on to further define vitamin D insufficiency as a level between 21 and 29 ng/mL (2). 1. IOM ([place] [employer]). 2010. Dietary reference intakes for calcium and D. [place]: The National Academies Press. 2. Ronald MF, [place] GILMORE, Mitchell HARRIS, et al. Evaluation, treatment, and prevention of vitamin D deficiency: an Endocrine Society clinical practice guideline. JCEM. 2010; 96(7):1911-30. Performed at: RN - [facility] [address] [id number] Clinical Psychology Teacher: Camryn Burgess MD, Phone: [phone] HIGH BLOOD PRESSURE, CP 39 0.0 - 0.045 ng/mL: Normal 0.046 - 0.5 ng/mL: Suggestive 0.6 - 1.5 ng/mL: Consistent Procedures Date Code Description Status 04/07/2018 [id number] Mammogram Completed 01/13/2018 11112 Brief Emotional/Behav Assessment W/ Scoring Doc Per Completed Standard Inst 11/24/2017 09335 Brief Emotional/Behav Assessment W/ Scoring Doc Per Completed Standard Inst 02/20/2016 73936 EKG-Tracing And Report Completed 11/17/2015 [id number] Bone Mineral Density Test Completed 10/29/2015 07917 EKG-Tracing And Report Completed 09/05/2013 [id number] Mammogram Completed 08/18/2012 [id number] Mammogram Completed 08/15/2011 14381 Anesthesia, Extraperitoneal Lower Abdomen Not Completed Otherwise Spec 02/03/2011 [id number] Mammogram Completed 12/17/2010 [id number] Colonoscopy Completed 11/27/2010 23554 Anesthesia, Vaginal Hysterectomy Completed 02/28/2010 51205 Echocardiogram Complete Completed 02/28/2010 69254 Holter Monitor 24HR Inter/Report Completed 02/28/2010 99468 Stress Test Interpre And Report Only Completed 02/28/2010 98092 Stress Test Physician Super Only Completed 01/17/2010 [id number] Mammogram Completed Encounters Type Date Location Provider Dx Diagnosis Office Visit 08/03/2018 Primary Care Ingrid Espinoza MD F41.9 Anxiety disorder, 4:00p Office unspecified F33.1 Major depressive disorder, recurrent, moderate M15.9 Polyosteoarthritis, unspecified N95.1 Menopausal and female climacteric states G56.03 Carpal tunnel syndrome, bilateral upper limbs N39.3 Stress incontinence (female) (male) Office Visit 03/25/2018 4:00p Primary Care Ingrid Espinoza, F41.9 Anxiety disorder, Office MD unspecified F33.1 Major depressive disorder, recurrent, moderate M15.9 Polyosteoarthritis, unspecified M76.62 Achilles tendinitis, left leg N95.1 Menopausal and female climacteric states Office Visit 01/13/2018 4:00p Primary Care Ingrid Espinoza, F41.9 Anxiety disorder, Office MD unspecified F33.1 Major depressive disorder, recurrent, moderate M15.9 Polyosteoarthritis, unspecified Office Visit 11/24/2017 3:00p Primary Care Ingrid Espinoza, F41.9 Anxiety disorder, Office MD unspecified F51.01 Primary insomnia F33.1 Major depressive disorder, recurrent, moderate M15.9 Polyosteoarthritis, unspecified Office Visit 11/02/2017 3:30p Primary Care Office Shelbie Early, MS, R05 Cough VISION THERAPIST-C, CNM N39.46 Mixed incontinence R47.02 Dysphasia R20.2 Paresthesia of skin F33.1 Major depressive disorder, recurrent, moderate Office Visit 10/21/2017 11:00a Primary Care Shelbie Early F51.01 Primary Office MS, VISION THERAPIST-C, CNM insomnia N39.3 Stress incontinence (female) (male) F33.1 Major depressive disorder, recurrent, moderate R05 Cough R47.02 Dysphasia Office Visit 02/23/2017 2:00p Primary Care Ingrid Espinoza, G47.00 Insomnia , Office MD unspecified F41.9 Anxiety disorder, unspecified F33.1 Major depressive disorder, recurrent, moderate R20.2 Paresthesia of skin Office Visit 09/29/2016 3:40p Primary Care Ingrid Espinoza, N20.0 Calculus of Office MD kidney M25.559 Pain in unspecified hip I10 Essential (primary) hypertension G47.00 Insomnia, unspecified M76.62 Achilles tendinitis, left leg M79.669 Pain in unspecified lower leg Office Visit 07/09/2016 2:00p Primary Care Ingrid Espinoza, N39.0 Urinary tract Office MD infection, site not specified Office Visit 07/01/2016 11:40a Primary Care Ingrid Espinoza, N20.0 Calculus of kidney Office MD Office Visit 05/21/2016 10:40a Primary Care Ingrid Espinoza, N20.0 Calculus of kidney Office MD M54.2 Cervicalgia M25.559 Pain in unspecified hip Office Visit 04/28/2016 3:40p Primary Care Ingrid Espinoza, I10 Essential ( primary) Office hypertension F41.9 Anxiety disorder, unspecified R45.4 Irritability and anger G47.00 Insomnia, unspecified M54.2 Cervicalgia Office Visit 02/20/2016 11:00a Primary Care Ingrid Espinoza, M62.830 Muscle spasm Office MD of back I10 Essential (primary) hypertension F41.9 Anxiety disorder, unspecified Office Visit 01/28/2016 3:40p Primary Care Ingrid Espinoza, I10 Essential ( primary) Office hypertension M25.559 Pain in unspecified hip G47.00 Insomnia, unspecified R45.4 Irritability and anger Office Visit 10/29/2015 11:00a Primary Care Ingrid Espinoza, I10 Essential ( primary) Office hypertension R12 Heartburn M25.559 Pain in unspecified hip M79.669 Pain in unspecified lower leg R07.9 Chest pain, unspecified Office Visit 10/26/2015 10:43a Cardiology Martin Chery R07.9 Chest pain, Office Khushboo Baig, [facility] unspecified Plan of Treatment 08/17/2018 - Martha Lee M.D.N39.46 Mixed incontinenceComments:Patient did not have much in her bladder during pelvic exams so stress incontinence was not demonstrated. I will need to do a pelvic examination when the patient has a full bladder. Patient will comeback in a few weeks for that.Z87.442 Personal history of urinary calculiComments:Given patient's history of kidney stones will obtain ultrasound to evaluate any stone burden.
[2018-08-27 19:22] VITALS: BP 178/91
[2018-08-27] MEDS ORDERED: Levalbuterol 0.63MG/3ML NEB* UNIT OF USE INH ONE (19:47)
--- NOTE | 2018-08-27 19:47 | UC ---
Respiratory Complaint HPI - HPI Summary HPI Summary: Pt presents with c/o sudden onset of cough, malaise, wheezing X 2 days. Pt states that she can not sleep as coughing keeps her up all night. - History of Current Complaint Chief Complaint: UCGeneralIllness Stated Complaint: COUGH,WEAK Time Seen by Provider: 08/27/18 19:28 Hx Obtained From: Patient Hx Last Menstrual Period: n/a ?: No Onset/Duration: Sudden Onset, Lasting Days, Still Present, Worse Since - onset Timing: Constant Severity Initially: Mild Severity Currently: Moderate Pain Intensity: 5 Character: Cough: Nonproductive Aggravating Factors: Allergens, Exertion, Deep Breaths, Recumbent Position Alleviating Factors: Nothing Associated Signs And Symptoms: Positive: Wheezing Related History: Seasonal Allergies - Risk Factors Pulmonary Embolism Risk Factors: Negative Cardiac Risk Factors: Negative Pseudomonas Risk Factors: Negative Tuberculosis Risk Factors: Negative - Allergies/Home Medications Allergies/Adverse Reactions: Allergies Allergy/AdvReac Type Severity Reaction Status Date / Time thimerosal Allergy Eyes Verified 08/27/18 19:22 Itchy/Swollen/Red/Watery Home Medications: Home Medications Naproxen Sodium [Aleve] 1 tab PO ONCE 08/27/18 [History Confirmed 08/27/18] PMH/Surg Hx/FS Hx/Imm Hx Previously Healthy: Yes - Surgical History Surgical History: Yes Surgery Procedure, Year, and Place: hysterectomy 2009, bladder repair 2010, d and c plus ablation 2007, tonsils 1967. EYES - LENS IMPLANT - - Family History Known Family History: Positive: Cardiac Disease, Hypertension - Social History Occupation: Works From/At Home Lives: With Family Alcohol Use: Rare Substance Use Type: None Smoking Status (MU): Never Smoked Tobacco Have You Smoked in the Last Year: No - Immunization History Vaccination Up to Date: Yes Review of Systems All Other Systems Reviewed And Are Negative: Yes Constitutional: Positive: Fatigue Skin: Positive: Negative Eyes: Positive: Negative Respiratory: Positive: Cough, Other - wheezing Cardiovascular: Positive: Negative Gastrointestinal: Positive: Negative Genitourinary: Positive: Negative Motor: Positive: Negative Neurovascular: Positive: Negative Musculoskeletal: Positive: Negative Neurological: Positive: Headache Psychological: Positive: Negative Is Patient Immunocompromised?: No Physical Exam Triage Information Reviewed: Yes Appearance: Ill-Appearing Vital Signs: Initial Vital Signs Temp 99 F 08/27/18 19:18 Pulse 94 08/27/18 19:18 Resp 24 08/27/18 19:18 BP 178/91 08/27/18 19:18 Pulse Ox 98 08/27/18 19:18 Vital Signs Reviewed: Yes Eye Exam: Normal ENT: Positive: Nasal congestion Dental Exam: Normal Neck exam: Normal Respiratory: Positive: Decreased breath sounds, Wheezing Cardiovascular Exam: Normal Musculoskeletal Exam: Normal Neurological Exam: Normal Psychological Exam: Normal Skin Exam: Normal Respiratory Course/Dx - Differential Dx/Diagnosis Differential Diagnosis/HQI/PQRI: Bronchitis, Exacerbation Of COPD Provider Diagnosis: Wheezing on both sides of chest, Bronchospasm Discharge - Sign-Out/Discharge Documenting (check all that apply): Patient Departure All imaging exams completed and their final reports reviewed: No Studies - Discharge Plan Condition: Stable Disposition: HOME Prescriptions: Codeine Phosphate/Guaifenesin [Guaifen-Codeine 100-10 mg/5 ml] 5 ml PO BEDTIME PRN #25 ml MDD 5 ml PRN Reason: Cough Montelukast Sodium TAB* [Singulair TAB*] 10 mg PO DAILY #14 tab predniSONE TAB* [Deltasone 10 MG TAB*] 30 mg PO DAILY #12 tab Patient Education Materials: Bronchospasm (ED), Wheezing (ED) Referrals: Ingrid Espinoza MD [Primary Care Provider] - If Needed - Billing Disposition and Condition Condition: STABLE Disposition: Home
== END 2018-08-27 20:29 | disposition home or self-care (01) ==
LOC: UCCORT 18:28
DX: J98.01 Acute bronchospasm (principal)
CPT/HCPCS: 99212; G0463

== ENCOUNTER 2018-09-19 07:02 | Emergency (ER) | payer BC ==
[2018-09-19 07:16] VITALS: BP 149/100
--- NOTE | 2018-09-19 07:34 | UC ---
Dental HPI - HPI Summary HPI Summary: 58 year old female presents with a 3 day history or right upper tooth pain. She states she saw her dentist 3 days ago and is being referred for a root canal, appointment is in 2 days. Denies abcess nor fever. Has been using ibuprofen 800mg q8h prn for pain without relief. She is requesting medication for pain contro until her procedure. - History of Current Complaint Chief Complaint: UCDentalProblem Stated Complaint: DENTAL COMPLAINT Time Seen by Provider: 09/19/18 07:25 Hx Obtained From: Patient Hx Last Menstrual Period: n/a Onset/Duration: Sudden Onset, Lasting Days - 3 Pain Intensity: 8 - Allergies/Home Medications Allergies/Adverse Reactions: Allergies Allergy/AdvReac Type Severity Reaction Status Date / Time thimerosal Allergy Eyes Verified 09/19/18 07:12 Itchy/Swollen/Red/Watery Home Medications: Home Medications Ibuprofen TAB* [Advil TAB*] 400 mg PO Q6H PRN 09/19/18 [History Confirmed ] Sertraline* [Zoloft*] 100 mg PO DAILY 09/19/18 [History Confirmed 09/19/18] PMH/Surg Hx/FS Hx/Imm Hx Previously Healthy: Yes Psychological History: Depression - controlled with sertraline - Surgical History Surgical History: Yes Surgery Procedure, Year, and Place: hysterectomy 2009, bladder repair 2010, d and c plus ablation 2007, tonsils 1967. EYES - LENS IMPLANT - - Family History Known Family History: Positive: Cardiac Disease, Hypertension - Social History Alcohol Use: Rare Substance Use Type: None Smoking Status (MU): Never Smoked Tobacco Have You Smoked in the Last Year: No - Immunization History Vaccination Up to Date: Yes Review of Systems All Other Systems Reviewed And Are Negative: Yes Constitutional: Positive: Negative Skin: Positive: Negative Eyes: Positive: Negative ENT: Positive: Dental Pain Respiratory: Positive: Negative Cardiovascular: Positive: Negative Gastrointestinal: Positive: Negative Genitourinary: Positive: Negative Motor: Positive: Negative Neurovascular: Positive: Negative Musculoskeletal: Positive: Negative Neurological: Positive: Negative Psychological: Positive: Negative Is Patient Immunocompromised?: No Physical Exam Triage Information Reviewed: Yes Appearance: Well-Appearing, No Pain Distress, Well-Nourished Vital Signs: Initial Vital Signs Temp 98.2 F 09/19/18 07:10 Pulse 88 09/19/18 07:10 Resp 16 09/19/18 07:10 BP 149/100 09/19/18 07:10 Pulse Ox 99 09/19/18 07:10 Vital Signs Reviewed: Yes Eyes: Positive: Conjunctiva Clear ENT: Positive: Dental tenderness - right upper teeth, no abcess identified. Neck: Positive: Supple, Nontender Respiratory: Positive: Lungs clear, Normal breath sounds Cardiovascular: Positive: RRR, No Murmur Abdomen Description: Positive: Nontender, Soft Musculoskeletal Exam: Normal Neurological Exam: Normal Psychological Exam: Normal Skin Exam: Normal Dental Complaint Course/Dx - Differential Dx/Diagnosis Provider Diagnosis: Dental caries Discharge - Sign-Out/Discharge Documenting (check all that apply): Patient Departure All imaging exams completed and their final reports reviewed: No Studies - Discharge Plan Condition: Stable Disposition: HOME Prescriptions: Hydrocodone/Acetaminophen [Hydrocodone-Acetamin 5-325 mg] 1 tab PO Q6H PRN #20 tablet MDD 4 PRN Reason: Pain - Moderate Patient Education Materials: Toothache (ED) Referrals: Ingrid Espinoza MD [Primary Care Provider] - Additional Instructions: Salt water garggles throughout the day. May alternate Hydrocodone/APAP 1 tablet every four ours with ibuprofen 600-800mg as needed for pain. Keep appointment with dentist in 09/21/18. - Billing Disposition and Condition Condition: STABLE Disposition: Home
== END 2018-09-19 07:52 | disposition home or self-care (01) ==
LOC: UCCORT 07:02
DX: K02.9 Dental caries, unspecified (principal)
CPT/HCPCS: 99212; G0463